=== PATIENT | male | born 1950 | race Caucasian/White ===

== ENCOUNTER 2024-11-20 19:42 | Inpatient (IN) | payer MEDICARE, OTHER ==
[~2024-11-20] VITALS: Ht 175.3 cm; Wt 90.4 kg
--- NOTE | 2024-11-20 20:03 | ED.PDOC ---
History of Present Illness HPI Comments 74-year-old male came to ER via EMS due to fall injury. Per EMS, patient picked up at home where he lives with his . Has been having recurrent falls recently and whenever he does, he cannot get up, not without help. Had another fall earlier, and as paramedics scoped the surroundings, noted that the house w as very unkempt and untidy, with feces all over the place. Fearing that the patient might not get the help he needs, they decided to bring patient to the ER. Patient currently complaining of generalized body pains. Patient lives alone with his elderly who is hard of hearing. The patient states he thinks he slid out of bed. Chief Complaint: Fall Injury Time Seen by MD: 20:01 Reviewed Notes: Weaving Machine Operator Notes Allergies: Coded Allergies: Aspirin (Verified Allergy, Unknown, 11/20/24) Information Source: Patient, Emergency Med Personnel Mode of Arrival: EMS Severity: Moderate Timing: Days Duration: Intermittent Review of Systems REVIEW OF SYSTEMS: No fever, no chills, or fatigue HEENT: No sore throat, no earache, no congestion, no neck pain. Cardiac: No chest pain. No palpitations. Lungs: No shortness of breath, no cough. GI: No nausea, no vomiting, no diarrhea, no constipation, no abdominal pain : No dysuria, frequency, or urgency. No hematuria. Musculoskeletal: (+) back pains, No joint pain , no joint swelling, no extremity edema. Skin: No rash, no itching. Neuro: No headache, no dizziness, no weakness Vital Signs Vital Signs Date Time Temp Pulse Resp B/P (MAP) Pulse Ox O2 Delivery O2 Flow Rate FiO2 11/20/24 21:44 60 11/20/24 19:58 98.9 22 152/75 (100) 88 Physical Exam General: Awake, alert and oriented. No acute distress. Appears unkempt. Skin: Skin in warm, dry and intact. Appropriate color for ethnicity. Nailbeds pink with no cyanosis. HEENT: The head is normocephalic and atraumatic. Conjunctivae are clear without exudates or hemorrhage. Sclera is non-icteric. EOM are intact. No signs of nystagmus. Eyelids are normal in appearance without swelling or lesions. Oral mucosa is pink and moist Neck: The neck is supple with normal range of motion. No JVD. Cardiac: Heart rate and rhythm are normal. No murmurs, gallops, or rubs are auscultated. Respiratory: No signs of respiratory distress. Lung sounds are clear in all lobes bilaterally without rales, ronchi, or wheezes. Abdominal: Abdomen is soft, non-tender without distention. Bowel sounds are present and normoactive in all four quadrants. Extremities: Bilateral feet with multiple abrasions. Upper and lower extremities are without deformity or tenderness to palpation. No pelvic tenderness to palpation. Neurological: The patient is awake, alert and oriented to person, place, and time with normal speech. Speech is clear. There is no facial asymmetry. Psychiatric: Appropriate mood and affect. Past Medical History PAST MEDICAL HISTORY: COPD, HTN Past Medical History (Other): Chronic back pain Surgical History: Denies all surgeries Family History Family History: Reviewed,noncontributory to illness Social History Smoker: Non-Smoker Alcohol: Denies ETOH Use Drugs: Denies Drug Use Lives In: Home Was a procedure done? Was a procedure done?: No Differential Dx Considerations may include: Anemia. Electrolyte imbalance. Dehydration. Failure to thrive. Fall injury. Arrhythmia, acute coronary syndrome, urinary tract infection, colitis X-Ray, Labs, Meds, VS Vital Signs Date Time Temp Pulse Resp B/P (MAP) Pulse Ox O2 Delivery O2 Flow Rate FiO2 11/20/24 21:44 60 11/20/24 19:58 98.9 64 22 152/75 (100) 88 Lab Test 11/20/24 21:51 11/20/24 20:15 Range/Units Creatine Kinase Pending Troponin I High Sensitivity Pending 146 *H </=54 ng/L B-Type Natriuretic Peptide Pending White Blood Count 8.3 4.4-10.8 10^3/uL Red Blood Count 4.81 4.5-5.90 10^6/uL Hemoglobin 14.8 13.5-17.5 g/dL Hematocrit 42.4 41.0-53.0 % Mean Corpuscular Volume 88.1 80.0-100.0 fL Mean Corpuscular Hemoglobin 30.7 28.0-32.0 pg Mean Corpuscular Hemoglobin Concent 34.8 32.0-36.0 g/dL Red Cell Distribution Width 14.6 H 11.8-14.3 % Platelet Count 107 L 140-450 10^3/uL Mean Platelet Volume 8.8 6.9-10.8 fL Neutrophils (%) (Auto) 87.7 H 37.0-80.0 % Lymphocytes (%) (Auto) 4.2 L 10.0-50.0 % Monocytes (%) (Auto) 7.9 0.0-12.0 % Eosinophils (%) (Auto) 0.0 0.0-7.0 % Basophils (%) (Auto) 0.2 0.0-2.0 % Neutrophils # (Auto) 7.3 1.6-8.6 10 ^3/uL Lymphocytes # (Auto) 0.3 L 0.4-5.4 10 ^3/uL Monocytes # (Auto) 0.7 0-1.3 10 ^3/uL Eosinophils # (Auto) 0 0-0.8 10 ^3/uL Basophils # (Auto) 0 0-0.2 10 ^3/uL Nucleated Red Blood Cells 0.0 % Sodium Level 139 136-145 mmol/L Potassium Level 2.9 L 3.5-5.1 mmol/L Chloride Level 103 98-107 mmol/L Carbon Dioxide Level 27 20-31 mmol/L Anion Gap 9 5-15 Blood Urea Nitrogen 14 9-23 mg/dL Creatinine 1.21 0.700-1.30 mg/dL Glomerular Filtration Rate Calc 63 >90 mL/min BUN/Creatinine Ratio 11.6 10.0-20.0 Serum Glucose 107 H 74-106 mg/dL Lactic Acid Level 1.7 0.4-2.0 mmol/L Calcium Level 9.2 8.7-10.4 mg/dL Magnesium Level 1.8 1.6-2.6 mg/dL Total Bilirubin 1.0 0.2-1.0 mg/dL Aspartate Amino Transferase (AST) 374 H 13-40 U/L Alanine Aminotransferase (ALT) 143 H 7-40 U/L Alkaline Phosphatase 56 46-116 U/L Total Protein 6.5 5.7-8.2 g/dL Albumin 4.1 3.2-4.8 g/dL Time of 1ST Reevaluation: 19:56 Reevaluation 1ST: Unchanged Patient Education/Counseling: Diagnosis, Treatment Family Education/Counseling: No Family Present Departure 1 Departure Time of Disposition: 21:33 Impression: Primary Impression: Unable to care for self Additional Impressions: Elevated troponin Hypokalemia Diarrhea Frequent falls Generalized weakness Fracture, thoracic vertebra, compression Qualified Codes: S22.080A - Wedge compression fracture of T11-T12 vertebra, initial encounter for closed fracture Hepatosplenomegaly Diverticulosis Colitis Emphysema of lung Aortic valve calcification Disposition: ADMITTED INPATIENT Condition: Poor Comments 74-year-old male who presents to the emergency department via EMS with frequent falls at home, found down the floor. Patient is unable to care for self at home, his elderly he is unable to care for him at home. Troponin to be elevated with no ST changes on the EKG. Patient is not complaining of chest pain. We will trend troponins and consult cardiology. No heparin at this time. Workup today also reveals that he has hypokalemia, a subacute/ already healing T11 compression fracture. Various other abnormalities identified on CT abdomen and pelvis. Patient admitted for further treatment, evaluation and monitoring. Extensive evaluation was performed in attempt to identify or rule out: (See differential diagnosis section) The following tests were ordered, and results were reviewed by me: (See diagnostic results section) The following test were independently interpreted by me: N/A I reviewed and agreed with the following test results read by other providers: N/A I reviewed the following notes from the pt's past medical encounters: N/A Additional information was gathered from interviewing the following independent historians: EMS personnel Discussion of management or test interpretation with external physician/other qualified health cattle care worker: N/A Addressed an acute or chronic illness that poses a threat to life or bodily function: Hypokalemia, elevated troponin level Decision regarding hospitalization or escalation of hospital level of care: Risk and benefits of admission for further treatment of patient's condition was considered. Due to patient's current clinical condition, high risk of decline and poor outcome if discharged and need for further inpatient management and monitoring, patient will be admitted to the hospital. Drug therapy requiring intensive monitoring for toxicity: IV potassium Parenteral controlled substances: N/A Decision regarding elective major surgery with identified patient or procedure risk factors: N/A Decision regarding emergency major surgery: N/A Decision not to resuscitate or to de-escalate care because of poor prognosis: N/A Diagnosis or treatment significantly limited by social determinants of health: Elderly patient with frequent falls, unable to care for self, lives at home with who is unable to care for patient Critical Care Note Critical Care Time?: No Stability Stability form required: No I personally scribed for BRANDYN ACOSTA MD ([email or web address]) on 11/20/24 at 20:03. Electronically submitted by Sorin Westbrook ([facility]). BRANDYN ACOSTA MD Nov 20, 2024 20:03
[2024-11-20 20:24] LABS: Basophils # (auto) 0 10 ^3/uL (0-0.2); Basophils % (auto) 0.2 % (0.0-2.0); Eosinophils # (auto) 0 10 ^3/uL (0-0.8); Hematocrit 42.4 % (41.0-53.0); Hemoglobin 14.8 g/dL (13.5-17.5); Lymphocytes # (auto) 0.3 10 ^3/uL (0.4-5.4); Lymphocytes % (auto) 4.2 % (10.0-50.0); Mean Corpuscular Hemoglobin 30.7 pg (28.0-32.0); Mean Corpuscular Hgb Conc. 34.8 g/dL (32.0-36.0); Mean Corpuscular Volume 88.1 fL (80.0-100.0); Monocytes # (auto) 0.7 10 ^3/uL (0-1.3); Monocytes % (auto) 7.9 % (0.0-12.0); Neutrophils # (auto) 7.3 10 ^3/uL (1.6-8.6); Neutrophils % (auto) 87.7 % (37.0-80.0); Platelet Count (auto) 107 10^3/uL (140-450); Red Blood Cells 4.81 10^6/uL (4.5-5.90); Red Cell Distribution Width 14.6 % (11.8-14.3); White Blood Cell 8.3 10^3/uL (4.4-10.8)
[2024-11-20 20:40] LABS: Albumin 4.1 g/dL (3.2-4.8); Alkaline Phosphatase 56 U/L (46-116); Anion Gap 9 (5-15); BUN/Creatinine Ratio 11.6 (10.0-20.0); Blood Urea Nitrogen 14 mg/dL (9-23); Calcium 9.2 mg/dL (8.7-10.4); Carbon Dioxide 27 mmol/L (20-31); Chloride 103 mmol/L (98-107); Magnesium 1.8 mg/dL (1.6-2.6); Sodium 139 mmol/L (136-145); Total Protein 6.5 g/dL (5.7-8.2)
[2024-11-20 20:41] LABS: Alanine Aminotransferase 143 U/L (7-40); Aspartate Aminotransferase 374 U/L (13-40); Glucose 107 mg/dL (74-106); Potassium 2.9 mmol/L (3.5-5.1)
--- NOTE | 2024-11-20 21:18 | DVH ---
EXAM: CT CERVICAL WITHOUT CONTRAST INDICATION: Fall, Generalized weakness, EXAM DATE: 11/20/2024 08:49 PM COMPARISON: None TECHNIQUE: Multiple axial CT images of the cervical spine were obtained using bone algorithm. Axial a nd coronal reformatting was done. Bone and soft tissue windows were reviewed. Radiation Dose Information: CT Dose: CTDI volume is 23.08 mGy. Dose-length product is 675.44 mGy*cm FINDINGS: The cervical alignment is intact. No acute cervical spine fracture is identified. The vertebral body heights are intact. No suspicious osseous lesions are identified. Motion artifact limits evaluation o f the mandible for fracture. Multilevel [id number] degenerative changes of the cervical spine. There is no prevertebral soft tissue swelling. The thyroid gland is unremarkable. The lung apices are clear. Mild mucoperiosteal thickening of the ethmoid air cells. IMPRESSION: No evidence of acute cervical spine fracture or traumatic malalignment. Motion artifact limits evaluation of the mandible for fractures. All CT scans at this medical facility are performed using dose modulation techniques as appropriate t o a performed exam including the following: Automated exposure control was utilized; adjustment of th e MA and/or KV according to patient size; and use of iterative reconstruction technique.
--- NOTE | 2024-11-20 21:18 | DVH ---
CT HEAD WITHOUT CONTRAST INDICATION: Fall, Generalized weakness, COMPARISON: None TECHNIQUE: CT of the head without intravenous contrast. RADIATION DOSE: CTDIvol: mGy, DLP: mGy*cm FINDINGS: There is no evidence of acute hemorrhage, acute infarct, extra-axial collection, mass effect, midlin e shift, herniation or hydrocephalus. Mild chronic white matter microvascular ischemic changes. Mild ventricular enlargement related to mild cerebral volume loss. Visualized paranasal sinuses and mastoi d air cells are clear. Soft tissues and osseous structures are unremarkable. IMPRESSION: No acute intracranial abnormality identified. Mild microvascular ischemic changes.
--- NOTE | 2024-11-20 21:43 | DVH ---
CLINICAL HISTORY: Fall, Generalized weakness, TECHNIQUE: CT of the chest, abdomen and pelvis was performed without IV contrast. This exam was perfo rmed according to our departmental dose optimization program. Up-to-date CT equipment and radiation d ose reduction techniques are utilized as appropriate. COMPARISON: None FINDINGS: CHEST FINDINGS: Lower Neck: Unremarkable Axilla, Mediastinum and Rochelle: No axillary or mediastinal lymphadenopathy. Limited evaluation of the rochelle in the absence of intravenous contrast Heart and Great Vessels: Normal-sized heart with trace pericardial fluid at least mild aortic valve a nd coronary artery calcifications greatest in the left anterior descending coronary artery there is m oderate calcified plaque in the normal caliber thoracic aorta. Central pulmonary arteries are normal caliber. Airway, Lungs and Pleura: Trachea and central airways are patent . Circumferential bronchial wall thi ckening . Mild emphysema. Linear bibasilar atelectasis or scarring. No consolidative pneumonia, pleu ral effusion, or pneumothorax. Chest Wall and Osseous Structures: Spinal stimulator leads terminate at the level of T6. There is a s ubacute appearing moderate greater than 50% height loss compression fracture of T11. Diffuse sclerosi s of the T11 vertebral body. mild multilevel thoracic spondylosis. Symmetric mild bilateral gynecomas tia. Abdomen and Pelvis Findings: Liver and Biliary system: Hepatomegaly measuring 19 cm craniocaudal. No definite hepatic lesion. The gallbladder is normal caliber. There is no biliary ductal dilatation Spleen: Mild splenomegaly. Adrenal Glands and Kidneys: Unremarkable. Pancreas and Retroperitoneum: Mild atrophy of the pancreas. There is no retroperitoneal lymphadenopat hy. Aorta and Major Vessels: Mild ectasia of the abdominal aorta. Moderate to marked calcified plaque in the aortoiliac vessels. Bowel, Mesentery and Peritoneal space: Normal caliber small and large bowel. Fluid containing small a nd large bowel loops. Mild distal colonic diverticulosis. Normal appendix. No free air or fluid wade ection. Pelvis: Mild prostatomegaly with nodular hypertrophy indenting into the bladder base. No pelvic lymph adenopathy. Urinary bladder is mildly distended. Abdominal wall and Osseous Structures: Small fat containing bilateral inguinal hernias. Small bilater al hydroceles. Posterior spinal fixation hardware with bilateral rods and transpedicular screws at L4 -S1. Multilevel lumbar spondylosis. There is a battery pack in the left flank with stimulator leads e ntering the spinal canal at the level of T12-L1. Multilevel lumbar spondylosis. There is bony deminer alization. Prior L5 laminectomy. No acute fracture. IMPRESSION: 1. Moderate greater than 50% height loss compression fracture of T11 with diffuse sclerosis of the ve rtebral body likely healing/subacute. 2. No noncontrast evidence of acute visceral injury or acute fracture. 3. Mild hepatosplenomegaly 4. Fluid containing small and large bowel loops which may be physiologic or related to enterocolitis 5. Mild emphysema. 6. At least mild coronary artery and aortic valve calcifications, greatest in the left anterior desce nding coronary artery. 7. Mild distal colonic diverticulosis 8. Mild prostatomegaly with nodular hypertrophy indenting into the bladder base.
[2024-11-21 02:00] VITALS: PULSE 55; RESP 15; O2SAT 94
[2024-11-21] MEDS: SODIUM CHLORIDE 0.9% 1,000 ML IV ONE (02:24)
[2024-11-21] MEDS: POTASSIUM CHL 20MEQ/100ML 100 ML IV ONE (02:37)
[2024-11-21 03:06] LABS: Urine Bacteria None Seen /hpf (None Seen)
[2024-11-21 03:23] LABS: Urine Blood 3+ /uL (Negative); Urine Clarity Clear (Clear); Urine Color Yellow (Yellow); Urine Hyaline Cast FEW /lpf (0 - 2); Urine Mucus FEW (None Seen); Urine Protein, UAD 1+ (Negative); Urine Specific Gravity 1.025 (1.001-1.035); Urine Squamous Epithelial Cell FEW /hpf (<5); Urine Urobilinogen Normal (Negative); Urine WBC 2 /HPF (0-3)
[2024-11-21] MEDS ORDERED: ACETAMINOPHEN 325 MG TAB PO PRN (04:00)
[2024-11-21] MEDS ORDERED: MORPHINE SULFATE INJ 2 MG/ml SYRG IV PRN (04:00)
[2024-11-21] MEDS ORDERED: ONDANSETRON HCL 4 MG/2 ML VIAL IV PRN (04:00)
[2024-11-21] MEDS ORDERED: NITROGLYCERIN 0.4 MG SL TAB SL PRN (04:00)
[2024-11-21] MEDS ORDERED: DOCUSATE SOD 100 MG CAP PO PRN (04:00)
--- NOTE | 2024-11-21 04:00 | ECG ---
[facility] Test Date: 2024-11-20 Test Time: 21:44:20 Pat Name: MARY SALES Department: ER Room: [address] [place] [address] Gender: M Cab Driver: CAMRON : 1950 Requested By: BRANDYN ACOSTA Order Number: [id number] Reading MD: Efren Tse Measurements Intervals Blanding Rate: 60 P: 46 NV: 158 QRS: 56 QRSD: 118 T: 62 QT: 451 QTc: 451 Interpretive Statements Sinus rhythm Nonspecific intraventricular conduction delay Artifact in lead(s) I,II,aVR,V1 Electronically Signed On 11-21-2024 19:55:23 PST by Efren Tse Please click the below link to view image of tracing.
--- NOTE | 2024-11-21 04:02 | DVHHP2 ---
History of Present Illness Reason for Visit: Generalized weakness History of Present Illness The patient is a 74-year-old male with past medical history of COPD, hypertension, and chronic back pain who presented to [facility] ED for evaluation of fall with injury. Patient lives at home with , had frequent fall at home with another fall earlier today with sustained injury. As reported, patient was noted to be unkempt, with Filthy surrounding, feces all over the place, unable to care for self. Patient was seen and evaluated in the ED, laboratory data shows WBC 8.3, platelets 107, sodium 139, potassium 2.9, BUN 14, creatinine 1.21, GFR 63, glucose 107, troponin 146, AST 374, ALT 143, BNP 71.35, CK 8993, blood pressure 152/75, heart rate 60, temperature 98.9 F, O2 saturation 92% on oxygen. CT of the chest/abdomen/pelvis revealing moderate greater than 50% height loss compression fracture of T11 with diffuse sclerosis of the vertebral body likely healing/subacute, mild hepatomegaly, enterocolitis, mild emphysema. Please see medication orders section in the computer. On my assessment, patient remains weak, no headache, no dizziness, no diaphoresis, currently on oxygen, no diarrhea, no nausea, no vomiting, no fever, no chills. Patient was admitted for further evaluation and medical management. Past Medical History COPD, HTN, Chronic back pain Past Surgical History Denies all surgeries Family History Reviewed, noncontributory to the management of this case. Past Social History The patient lives at home, denies smoking, alcohol or illicit drugs abuse. Review of Systems Constitutional: Yes: Weakness; No: Fever, Chills, Sweats, Malaise, Other Eyes: No: Pain, Vision change, Conjunctivae inflammation, Eyelid inflammation, Other, Redness ENT: No: Ear pain, Ear discharge, Nose pain, Nose discharge, Nose congestion, Mouth pain, Mouth swelling, Throat pain, Throat swelling, Other Respiratory: No: Cough, Dry, Shortness of breath, SOB with excertion, Wheezing, Hemoptysis, Pleuritic Pain, Sputum, Wheezing, Other Cardiovascular: No: Chest Pain, Palpitations, Orthopnea, Paroxysmal Noc. Dyspnea, Edema, Lt Headedness, Other Gastrointestinal: No: Nausea, Vomiting, Abdominal Pain, Diarrhea, Constipation, Melena, Hematochezia, Other Genitourinary: No Dysuria, No Frequency, No Incontinence, No Hematuria, No Retention, No Other Musculoskeletal: back pain; No: other, neck pain, shoulder pain, arm pain, hand pain, leg pain, foot pain Skin: No: Rash, Lesions, Jaundice, Bruising, Other Neurological: No: Weakness, Numbness, Incoordination, Change in speech, Confusion, Seizures, Other Allergies: Coded Allergies: Aspirin (Verified Allergy, Unknown, 11/20/24) Exam Vital Signs Vital Signs Date Time Temp Pulse Resp B/P (MAP) Pulse Ox O2 Delivery O2 Flow Rate FiO2 11/21/24 03:53 50 16 152/61 (91) 95 11/21/24 02:00 98.9 98.9 11/21/24 02:00 Nasal Cannula* 3 32 General Appearance: Alert, Oriented X3, Cooperative, No acute distress HEENT: Atraumatic, PERRLA, EOMI, Mucous membr. moist/pink Respiratory: Clear to auscultation, Normal air movement Cardiovascular: Regular rate, Normal S1, Normal S2, No murmurs Abdominal: Normal bowel sounds, Soft, No tenderness, No hepatospenomegaly, No masses Extremities: No clubbing, No cyanosis, No edema, Normal pulses, No tenderness/swelling Skin: No rashes, No breakdown, No significant lesion Neuro: Normal speech, Normal tone, Sensation intact, Cranial nerves 3-12 NL, Reflexes 2+, Other (Generalized weakness) Psych/Mental Status: Mental status NL, Mood NL Labs/Xrays Labs Test 11/21/24 03:00 11/20/24 23:18 11/20/24 21:51 11/20/24 20:15 Range/Units Urine Color Yellow Yellow Urine Clarity Clear Clear Urine pH 6.0 5.0-9.0 Urine Specific [place] 1.025 1.001-1.035 Urine Protein 1+ H Negative Urine Ketones Trace Negative Urine Blood 3+ H Negative /uL Urine Nitrite Negative Negative Urine Bilirubin Negative Negative Urine Urobilinogen Normal Negative mg/dL Urine Leukocyte Esterase Negative Negative /uL Urine RBC 1 0 - 3 /hpf Urine Microscopic WBC 2 0-3 /HPF Urine Squamous Epithelial Cells Few <5 /hpf Urine Bacteria None seen None Seen /hpf Urine Hyaline Casts Few 0 - 2 /lpf Urine Mucus Few None Seen Urine Glucose Normal Normal mg/dL Troponin I High Sensitivity 147 *H </=54 ng/L Creatine Kinase 8993 H 46-171 U/L B-Type Natriuretic Peptide 71.35 0-100 pg/mL White Blood Count 8.3 4.4-10.8 10^3/uL Red Blood Count 4.81 4.5-5.90 10^6/uL Hemoglobin 14.8 13.5-17.5 g/dL Hematocrit 42.4 41.0-53.0 % Mean Corpuscular Volume 88.1 80.0-100.0 fL Mean Corpuscular Hemoglobin 30.7 28.0-32.0 pg Mean Corpuscular Hemoglobin Concent 34.8 32.0-36.0 g/dL Red Cell Distribution Width 14.6 H 11.8-14.3 % Platelet Count 107 L 140-450 10^3/uL Mean Platelet Volume 8.8 6.9-10.8 fL Neutrophils (%) (Auto) 87.7 H 37.0-80.0 % Lymphocytes (%) (Auto) 4.2 L 10.0-50.0 % Monocytes (%) (Auto) 7.9 0.0-12.0 % Eosinophils (%) (Auto) 0.0 0.0-7.0 % Basophils (%) (Auto) 0.2 0.0-2.0 % Neutrophils # (Auto) 7.3 1.6-8.6 10 ^3/uL Lymphocytes # (Auto) 0.3 L 0.4-5.4 10 ^3/uL Monocytes # (Auto) 0.7 0-1.3 10 ^3/uL Eosinophils # (Auto) 0 0-0.8 10 ^3/uL Basophils # (Auto) 0 0-0.2 10 ^3/uL Nucleated Red Blood Cells 0.0 % Sodium Level 139 136-145 mmol/L Potassium Level 2.9 L 3.5-5.1 mmol/L Chloride Level 103 98-107 mmol/L Carbon Dioxide Level 27 20-31 mmol/L Anion Gap 9 5-15 Blood Urea Nitrogen 14 9-23 mg/dL Creatinine 1.21 0.700-1.30 mg/dL Glomerular Filtration Rate Calc 63 >90 mL/min BUN/Creatinine Ratio 11.6 10.0-20.0 Serum Glucose 107 H 74-106 mg/dL Lactic Acid Level 1.7 0.4-2.0 mmol/L Calcium Level 9.2 8.7-10.4 mg/dL Magnesium Level 1.8 1.6-2.6 mg/dL Total Bilirubin 1.0 0.2-1.0 mg/dL Aspartate Amino Transferase (AST) 374 H 13-40 U/L Alanine Aminotransferase (ALT) 143 H 7-40 U/L Alkaline Phosphatase 56 46-116 U/L Total Protein 6.5 5.7-8.2 g/dL Albumin 4.1 3.2-4.8 g/dL PATIENT: MARY SALES ACCT: [id number] UNIT: [id number] : 1950 LOC: ER ROOM / BED: / AGE / SEX: 74 / M ADM STATUS: REG ER SERVICE 53 ORDERING PHYSICIAN: BRANDYN ACOSTA MD PROCEDURE(s): CTCAP - CHST AB PEL WO CON-NO IV/ORAL REASON: Fall, Generalized weakness, ORDER NUMBER(s): [id number], ACCESSION NUMBER(s): [id number] CLINICAL HISTORY: Fall, Generalized weakness, TECHNIQUE: CT of the chest, abdomen and pelvis was performed without IV contrast . This exam was performed according to our departmental dose optimization program. Up-to-date CT equipment and radiation dose reduction techniques are utilized as appropriate. COMPARISON: None FINDINGS: CHEST FINDINGS: Lower Neck: Unremarkable Axilla, Mediastinum and Rochelle: No axillary or mediastinal lymphadenopathy. Limited evaluation of the rochelle in the absence of intravenous contrast Heart and Great Vessels: Normal-sized heart with trace pericardial fluid at least mild aortic valve and coronary artery calcifications greatest in the left anterior descending coronary artery there is moderate calcified plaque in the normal caliber thoracic aorta. Central pulmonary arteries are normal caliber. Airway, Lungs and Pleura: Trachea and central airways are patent . Circumferential bronchial wall thickening. Mild emphysema. Linear bibasilar atelectasis or scarring. No consolidative pneumonia, pleural effusion, or pneumothorax. Chest Wall and Osseous Structures: Spinal stimulator leads terminate at the level of T6. There is a subacute appearing moderate greater than 50% height loss compression fracture of T11. Diffuse sclerosis of the T11 vertebral body. mild multilevel thoracic spondylosis. Symmetric mild bilateral gynecomastia. Abdomen and Pelvis Findings: Liver and Biliary system: Hepatomegaly measuring 19 cm craniocaudal. No definite hepatic lesion. The gallbladder is normal caliber. There is no biliary ductal dilatation Spleen: Mild splenomegaly. Adrenal Glands and Kidneys: Unremarkable. Pancreas and Retroperitoneum: Mild atrophy of the pancreas. There is no retroperitoneal lymphadenopathy. Aorta and Major Vessels: Mild ectasia of the abdominal aorta. Moderate to marked calcified plaque in the aortoiliac vessels. Bowel, Mesentery and Peritoneal space: Normal caliber small and large bowel. Fluid containing small and large bowel loops. Mild distal colonic diverticulosis. Normal appendix. No free air or fluid collection. Pelvis: Mild prostatomegaly with nodular hypertrophy indenting into the bladder base. No pelvic lymphadenopathy. Urinary bladder is mildly distended. Abdominal wall and Osseous Structures: Small fat containing bilateral inguinal hernias. Small bilateral hydroceles. Posterior spinal fixation hardware with bilateral rods and transpedicular screws at L4-S1. Multilevel lumbar spondylosis. There is a battery pack in the left flank with stimulator leads entering the spinal canal at the level of T12-L1. Multilevel lumbar spondylosis. There is bony demineralization. Prior L5 laminectomy. No acute fracture. IMPRESSION: 1. Moderate greater than 50% height loss compression fracture of T11 with diffuse sclerosis of the vertebral body likely healing/subacute. 2. No noncontrast evidence of acute visceral injury or acute fracture. 3. Mild hepatosplenomegaly 4. Fluid containing small and large bowel loops which may be physiologic or related to enterocolitis 5. Mild emphysema. 6. At least mild coronary artery and aortic valve calcifications, greatest in the left anterior descending coronary artery. 7. Mild distal colonic diverticulosis 8. Mild prostatomegaly with nodular hypertrophy indenting into the bladder base. ORDERING PHYSICIAN: BRANDYN ACOSTA MD PROCEDURE(s): CS2 - CERVICAL WITHOUT CONTRAST REASON: Fall, Generalized weakness, ORDER NUMBER(s): [id number], ACCESSION NUMBER(s): [id number] EXAM: CT CERVICAL WITHOUT CONTRAST INDICATION: Fall, Generalized weakness, EXAM DATE: 11/20/2024 08:49 PM COMPARISON: None TECHNIQUE: Multiple axial CT images of the cervical spine were obtained using bone algorithm. Axial and coronal reformatting was done. Bone and soft tissue windows were reviewed. Radiation Dose Information: CT Dose: CTDI volume is 23.08 mGy. Dose-length product is 675.44 mGy*cm FINDINGS: The cervical alignment is intact. No acute cervical spine fracture is identified. The vertebral body heights are intact. No suspicious osseous lesions are identified. Motion artifact limits evaluation of the mandible for fracture. Multilevel [id number] degenerative changes of the cervical spine. There is no prevertebral soft tissue swelling. The thyroid gland is unremarkable. The lung apices are clear. Mild mucoperiosteal thickening of the ethmoid air cells. IMPRESSION: No evidence of acute cervical spine fracture or traumatic malalignment. Motion artifact limits evaluation of the mandible for fractures. ORDERING PHYSICIAN: BRANDYN ACOSTA MD PROCEDURE(s): HWOCT - HEAD WITHOUT CONTRAST REASON: Fall, Generalized weakness, ORDER NUMBER(s): [id number], ACCESSION NUMBER(s): [id number] CT HEAD WITHOUT CONTRAST INDICATION: Fall, Generalized weakness, COMPARISON: None TECHNIQUE: CT of the head without intravenous contrast. RADIATION DOSE: CTDIvol: mGy, DLP: mGy*cm FINDINGS: There is no evidence of acute hemorrhage, acute infarct, extra-axial collection, mass effect, midline shift, herniation or hydrocephalus. Mild chronic white matter microvascular ischemic changes. Mild ventricular enlargem ent related to mild cerebral volume loss. Visualized paranasal sinuses and mastoid air cells are clear. Soft tissues and osseous structures are unremarkable. IMPRESSION: No acute intracranial abnormality identified. Mild microvascular ischemic changes. Assessment/Plan Assessment/Plan Generalized weakness Unable to care for self Elevated troponin Hypokalemia Frequent falls Fracture, thoracic vertebra, compression Wedge compression fracture of T11-T12 vertebra, initial encounter for closed fracture Hepatosplenomegaly Rhabdomyolysis Emphysema of lung Aortic valve calcification Plan 1. Admit to telemetry unit 2. Breathing treatment 3. Pain control management 4. Management of fluids and electrolytes 5. Consultation for orthopedic/neurology 6. Diagnostic tests chest/abdomen/pelvis CT 7. DVT prophylaxis-on aspirin 8. Repeat labs CBC, CMP in a.m. 9. Continue with current medical management 10. Treatment plan discussed with patient and RN. Patient verbalized understanding. Plan discussed with: Patient, Other (RN) My Orders Orders - MILAD ESCOTO DNP Procedure Category Date Status Time Complete Blood Count LAB 11/21/24 Verified 04:00 Comprehensive LAB 11/21/24 Verified Metabolic Panel 04:00 Hydralazine Injection PHA 11/21/24 Verified (Apresoline Inject 04:00 Amlodipine Tablet PHA 11/21/24 Verified (Norvasc Tablet) 10:00 Aspirin Tablet PHA 11/21/24 Verified 10:00 Aspirin Tablet [facility] 11/21/24 Verified 10:00 Admit ADMIT 11/21/24 Verified 03:56 Allergies [facility] 11/21/24 Verified 03:56 Code Status CODE 11/21/24 Verified 03:56 0.9% Ns 1000 Ml PHA 11/21/24 Verified 04:00 Oxygen Per Hour RT 11/21/24 Verified 03:56 Hydrocodone-Acet PHA 11/21/24 Verified 5/325mg Tab ([place] 04:00 Ondansetron Hcl PHA 11/21/24 Verified (Zofran) 04:00 Docusate Sodium [facility] 11/21/24 Verified Capsule (Colace 04:00 Fall Risk Precautions [facility] 11/21/[address] 03:56 Complete Blood Count LAB 11/22/24 Verified 04:00 Comprehensive LAB 11/22/24 Verified Metabolic Panel 04:00 Cardiac DIET 11/21/24 Verified Diet-2gna,Lofat,Lochol Breakfast Condition: Serious [facility] 11/21/24 Verified 03:56 Acetaminophen Tablet [facility] 11/21/24 Verified (Tylenol Tablet) 04:00 Sequential [facility] 11/21/24 Verified Compression Device Nitroglycerin [facility] 11/21/24 Verified Sublingual (Ntrostat 04:00 Morphine Sulfate [facility] 11/21/24 Verified Injection 04:00 Notify Of Changes [facility] 11/21/24 Verified From Base 03:56 Refrigeration Engine Operator For [facility] 11/21/24 Verified 24 Hours 03:56 Emergency Dysrhythmia [facility] 11/21/24 Verified Protocol 03:56 Rhythm Strips Once [facility] 11/21/24 Verified Every Shift 03:56 Oxygen By Nasal RT 11/21/24 Verified Cannula 03:56 Problem List: (1) Generalized weakness (2) Elevated troponin (3) Unable to care for self (4) Hypokalemia (5) Hepatosplenomegaly (6) Fracture, thoracic vertebra, compression (7) Emphysema of lung (8) Aortic valve calcification (9) Rhabdomyolysis (10) Frequent falls (11) Wedge compression fracture of T11-T12 vertebra, initial encounter for closed fracture Date of Service: Nov 21, 2024 Billing Provider: OKPAN,MILAD O DNP Common Visit Codes: [id number] INP/OBS CARE (HIGH) MILAD ESCOTO DNP Nov 21, 2024 04:02
[2024-11-21 04:20] VITALS: PULSE 50; RESP 16; O2SAT 95
[2024-11-21] MEDS: SODIUM CHLORIDE 0.9% 1,000 ML IV SCH (04:54)
[2024-11-21 07:23] LABS: Basophils # (auto) 0 10 ^3/uL (0-0.2); Basophils % (auto) 0.2 % (0.0-2.0); Eosinophils # (auto) 0 10 ^3/uL (0-0.8); Hematocrit 38.1 % (41.0-53.0); Hemoglobin 13.4 g/dL (13.5-17.5); Lymphocytes % (auto) 15.7 % (10.0-50.0); Mean Corpuscular Hemoglobin 30.9 pg (28.0-32.0); Mean Corpuscular Hgb Conc. 35.2 g/dL (32.0-36.0); Mean Corpuscular Volume 87.8 fL (80.0-100.0); Monocytes # (auto) 0.6 10 ^3/uL (0-1.3); Monocytes % (auto) 10.1 % (0.0-12.0); Neutrophils # (auto) 4.7 10 ^3/uL (1.6-8.6); Platelet Count (auto) 106 10^3/uL (140-450); Red Blood Cells 4.34 10^6/uL (4.5-5.90); Red Cell Distribution Width 14.3 % (11.8-14.3); White Blood Cell 6.3 10^3/uL (4.4-10.8)
[2024-11-21 07:40] LABS: Albumin 3.8 g/dL (3.2-4.8); Alkaline Phosphatase 50 U/L (46-116); Anion Gap 8 (5-15); BUN/Creatinine Ratio 14.9 (10.0-20.0); Bilirubin, Total 0.8 mg/dL (0.2-1.0); Blood Urea Nitrogen 14 mg/dL (9-23); Calcium 8.8 mg/dL (8.7-10.4); Carbon Dioxide 27 mmol/L (20-31); Chloride 106 mmol/L (98-107); Glucose 89 mg/dL (74-106); Sodium 141 mmol/L (136-145)
[2024-11-21 07:43] LABS: Alanine Aminotransferase 158 U/L (7-40); Aspartate Aminotransferase 415 U/L (13-40); Potassium 2.8 mmol/L (3.5-5.1)
[2024-11-21 08:00] VITALS: PULSE 52; RESP 16; O2SAT 92
[2024-11-21] MEDS ORDERED: ASPirin 81 mg TAB PO SCH (10:00)
[2024-11-21] MEDS: ASPirin 81 mg TAB PO SCH (10:20)
[2024-11-21] MEDS: amLODIPine BESYLATE 5 MG TAB PO SCH (10:21)
--- NOTE | 2024-11-21 13:52 | DVHPN2 ---
Reviewed: Care Plan, H&P, Labs, Medications, Previous Orders, Radiology Changes from previous H/P or p: No Changes Eyes: No Pain, No Vision change, No Conjunctivae inflammation, No Eyelid inflammation, No Other, No Redness ENT: No Ear pain, No Ear discharge, No Nose pain, No Nose discharge, No Nose congestion, No Mouth pain, No Mouth swelling, No Throat pain, No Throat swelling, No Other Cardiovascular: No Chest Pain, No Palpitations, No Orthopnea, No Paroxysmal Noc. Dyspnea, No Edema, No Lt Headedness, No Other Respiratory: No Cough, No Dry, No Shortness of breath, No SOB with excertion, No Wheezing, No Hemoptysis, No Pleuritic Pain, No Sputum, No Other Gastrointestinal: No Nausea, No Vomiting, No Abdominal Pain, No Diarrhea, No Constipation, No Melena, No Hematochezia, No Other Genitourinary: No Dysuria, No Frequency, No Incontinence, No Hematuria, No Retention, No Other Musculoskeletal: No other, No neck pain, No shoulder pain, No arm pain; back pain; No hand pain, No leg pain, No foot pain Skin: No Rash, No Lesions, No Jaundice, No Bruising, No Other Objective Vitals Vital Signs Date Time Temp Pulse Resp B/P (MAP) Pulse Ox O2 Delivery O2 Flow Rate FiO2 11/21/24 12:00 54 17 119/59 (79) 92 11/21/24 08:00 98.6 98.6 11/21/24 08:00 Nasal Cannula* 4 36 Intake/Output Intake and Output 11/21/24 07:00 Intake Total 340 ml Balance 340 ml Intake IV Total 340 ml Medications Current Medications Medications Dose Ordered Sig/Howard Route Start Time Stop Time Status Last Admin Dose Admin Hydralazine HCl 10 mg Q6HP PRN IV 11/21/24 04:00 Amlodipine Besylate 5 mg DAILY PO 11/21/24 10:00 11/21/24 10:21 5 MG Aspirin 81 mg DAILY PO 11/21/24 10:00 11/21/24 10:20 81 MG Sodium Chloride 1,000 ml @ 120 mls/hr Q8H20M IV 11/21/24 04:00 11/21/24 12:20 120 MLS/HR Acetaminophen/ Hydrocodone Bitart 1 tab Q4HP PRN PO 11/21/24 04:00 Ondansetron HCl 4 mg Q4HP PRN IV 11/21/24 04:00 Docusate Sodium 100 mg BIDPRN PRN PO 11/21/24 04:00 Acetaminophen 650 mg Q6HP PRN PO 11/21/24 04:00 Nitroglycerin 0.4 mg Q5MINP PRN SL 11/21/24 04:00 Morphine Sulfate 2 mg Q30M PRN IV 11/21/24 04:00 Potassium Bicarbonate 50 meq DAILY PO 11/22/24 10:00 UNV Laboratory Results Laboratory Tests 11/21/24 06:54 Chemistry Test 11/20/24 20:15 11/21/24 06:54 Albumin 4.1 g/dL (3.2-4.8) 3.8 g/dL (3.2-4.8) Calcium Level 9.2 mg/dL (8.7-10.4) 8.8 mg/dL (8.7-10.4) Magnesium Level 1.8 mg/dL (1.6-2.6) Total Protein 6.5 g/dL (5.7-8.2) 6.0 g/dL (5.7-8.2) Cardiac Markers Test 11/20/24 21:51 B-Type Natriuretic Peptide 71.35 pg/mL (0-100) LFT Test 11/20/24 20:15 11/21/24 06:54 Alanine Aminotransferase (ALT) 143 U/L (7-40) H 158 U/L (7-40) H Alkaline Phosphatase 56 U/L (46-116) 50 U/L (46-116) Aspartate Amino Transferase (AST) 374 U/L (13-40) H 415 U/L (13-40) H Total Bilirubin 1.0 mg/dL (0.2-1.0) 0.8 mg/dL (0.2-1.0) Urinalysis Test 11/21/24 03:00 Urine Color Yellow (Yellow) Urine Clarity Clear (Clear) Urine pH 6.0 (5.0-9.0) Urine Specific [place] 1.025 (1.001-1.035) Urine Protein 1+ (Negative) H Urine Ketones Trace (Negative) Urine Blood 3+ /uL (Negative) H Urine Nitrite Negative (Negative) Urine Bilirubin Negative (Negative) Urine Urobilinogen Normal mg/dL (Negative) Urine Leukocyte Esterase Negative /uL (Negative) Urine RBC 1 /hpf (0 - 3) Urine Microscopic WBC 2 /HPF (0-3) Urine Squamous Epithelial Cells Few /hpf (<5) Urine Bacteria None seen /hpf (None Seen) Urine Hyaline Casts Few /lpf (0 - 2) Urine Mucus Few (None Seen) Urine Glucose Normal mg/dL (Normal) Labs and/or images reviewed: Labs reviewed by me, Image(s) reviewed by me Assessment/Plan Assessment/Plan Acute generalized weakness Recurrent falls T11 fracture with 50 percent height loss: Orthopedic consult Acute hypokalemia potassium 2.9: Replace potassium Elevated troponin 146: Consult by Dr. Bar BPH Acute on chronic COPD exacerbation Hypertension Chronic back pain CT head negative C-spine CT negative Elevated liver function tests: Consult for GI Dr. Sherie Strong Condition guarded Time spent 65 minutes Advanced care planning time 20 minutes Patient is full code Plan discussed with: Patient My Orders Orders - ANTHONY FLORES MD Procedure Category Date Status Time Potassium Effervesent PHA 11/21/24 Logged Tab (Klor-Con/Ef) 14:00 Potassium Effervesent PHA 11/22/24 Logged Tab (Klor-Con/Ef) 10:00 Date of Service: Nov 21, 2024 Billing Provider: ANTHONY FLORES MD Common Visit Codes: [id number] CARE 30-74 MIN ANTHONY FLORES MD Nov 21, 2024 13:52
[2024-11-21] MEDS: POTASSIUM EFFERVESENT TAB 25 MEQ PO ONE (14:00)
--- NOTE | 2024-11-21 15:16 | DVHINCON2 ---
Date Seen: Nov 21, 2024 Referring Physician Neftaly Reason for Consultation Positive troponins History of Present Illness 74-year-old male with PMH for COPD, HTN, chronic back pain presents to the hospital after multiple falls at home. The patient fell was unable to get up and therefore EMS was called. Apparently patient has been feeling generalized weakness and shortness of breath having increased congestion productive cough. Patient denies any lightheadedness, syncope. Upon evaluation in the ER patient noted to have mildly elevated troponins trending 146, 152, 147. Endorses chest pain, pressure in nature, intermittent, worsens with deep inhalation and reproducible with cough. CT head negative for acute pathology, noted microvascular ischemic changes. CK 8993. K 2.8. Mildly Elevated AST and ALT. EKG reviewed and shows sinus rhythm at 60 beats per minute, no acute ST abnormalities noted Past Medical History HTN COPD Past Surgical History Denies previous cardiac surgeries Family History Denies pertinent family cardiac history Social History Denies current alcohol, tobacco, or illicit drug use Allergies: Coded Allergies: Aspirin (Verified Allergy, Severe, HIVES, 11/21/24) Caffeine (Verified Allergy, Severe, HIVES, 11/21/24) Current Medications Current Medications Medications (Trade) Dose Ordered Sig/Howard Route PRN Reason Start Time Stop Time Status Last Admin Hydralazine HCl (Apresoline Injection) 10 mg Q6HP PRN IV SBP>150 11/21/24 04:00 Amlodipine Besylate (Norvasc Tablet) 5 mg DAILY PO 11/21/24 10:00 11/21/24 10:21 Aspirin 162 mg DAILY PO 11/21/24 10:00 11/21/24 09:57 DC Aspirin 81 mg DAILY PO 11/21/24 10:00 11/21/24 10:20 Sodium Chloride 1,000 ml @ 120 mls/hr Q8H20M IV 11/21/24 04:00 11/21/24 12:20 Acetaminophen/ Hydrocodone Bitart ([place] 5/325MG Tab) 1 tab Q4HP PRN PO MODERATE PAIN (4-6 PAIN SCALE) 11/21/24 04:00 Ondansetron HCl (Zofran) 4 mg Q4HP PRN IV NAUSEA / VOMITING 11/21/24 04:00 Docusate Sodium (Colace Capsule) 100 mg BIDPRN PRN PO FOR CONSTIPATION 11/21/24 04:00 Acetaminophen (Tylenol Tablet) 650 mg Q6HP PRN PO PAIN SCALE 1-3 OR TEMP>100.4 11/21/24 04:00 Nitroglycerin (Ntrostat Sublingual) 0.4 mg Q5MINP PRN SL FOR CHEST PAIN 11/21/24 04:00 Morphine Sulfate 2 mg Q30M PRN IV FOR CHEST PAIN 11/21/24 04:00 Potassium Bicarbonate (Klor-Con/Ef) 50 meq DAILY PO 11/22/24 10:00 Review of Systems Constitutional: No: Fever, Chills, Sweats, , Other positive: Weakness, Malaise Eyes: No: Pain, Vision change, Conjunctivae inflammation, Eyelid inflammation, Other, Redness ENT: No: Ear pain, Ear discharge, Nose pain, Nose discharge, Nose congestion, Mouth pain, Mouth swelling, Throat pain, Throat swelling, Other Respiratory: No: , Dry, , Wheezing, Hemoptysis, Pleuritic Pain, Sputum, Wheezing, Other positive: Cough, Shortness of breath, SOB with exertion Cardiovascular: ; No: Palpitations, Orthopnea, Paroxysmal Noc. Dyspnea, Edema, Lt Headedness, Other positive: Chest Pain Gastrointestinal: No: Nausea, Vomiting, Abdominal Pain, Diarrhea, Constipation, Melena, Hematochezia, Other Genitourinary: No Dysuria, No Frequency, No Incontinence, No Hematuria, No Retention, No Other Musculoskeletal: neck pain; No: other, shoulder pain, arm pain, back pain, hand pain, leg pain, foot pain Skin: No: Rash, Lesions, Jaundice, Bruising, Other Neurological: Other (Dizziness, headache.); No: Weakness, Numbness, Incoordination, Change in speech, Confusion, Seizures Vital Signs Vital Signs Date Time Temp Pulse Resp B/P (MAP) Pulse Ox O2 Delivery O2 Flow Rate FiO2 11/21/24 12:00 54 17 119/59 (79) 92 11/21/24 08:00 98.6 98.6 11/21/24 08:00 Nasal Cannula* 4 36 Physical Exam General appearance: Ill-appearing, in mild acute distress. HEENT: Exam shows: Normocephalic, atraumatic, PERRLA, EOMI Neck: Supple, no bruits Chest: Equal chest excursion bilaterally. Breath sounds coarse rhonchi. Heart: Rhythm: Regular rate; no murmur or gallop Abdomen: Exam shows: Soft, nontender, nondistended Musculoskeletal: No clubbing, no cyanosis, no lower extremity edema Dermatology: Skin warm, moist. Neurological: Exam shows: Alert and oriented x3-4, normal speech Available prior records, labs, EKG, rhythm strips reviewed and interpreted Labs/Diagnostic Data Labs Test 11/21/24 06:54 11/21/24 03:00 11/20/24 23:18 11/20/24 21:51 Range/Units White Blood Count 6.3 4.4-10.8 10^3/uL Red Blood Count 4.34 L 4.5-5.90 10^6/uL Hemoglobin 13.4 L 13.5-17.5 g/dL Hematocrit 38.1 #L 41.0-53.0 % Mean Corpuscular Volume 87.8 80.0-100.0 fL Mean Corpuscular Hemoglobin 30.9 28.0-32.0 pg Mean Corpuscular Hemoglobin Concent 35.2 32.0-36.0 g/dL Red Cell Distribution Width 14.3 11.8-14.3 % Platelet Count 106 L 140-450 10^3/uL Mean Platelet Volume 9.1 6.9-10.8 fL Neutrophils (%) (Auto) 74.0 37.0-80.0 % Lymphocytes (%) (Auto) 15.7 10.0-50.0 % Monocytes (%) (Auto) 10.1 0.0-12.0 % Eosinophils (%) (Auto) 0.0 0.0-7.0 % Basophils (%) (Auto) 0.2 0.0-2.0 % Neutrophils # (Auto) 4.7 1.6-8.6 10 ^3/uL Lymphocytes # (Auto) 1.0 0.4-5.4 10 ^3/uL Monocytes # (Auto) 0.6 0-1.3 10 ^3/uL Eosinophils # (Auto) 0 0-0.8 10 ^3/uL Basophils # (Auto) 0 0-0.2 10 ^3/uL Nucleated Red Blood Cells 0.0 % Sodium Level 141 136-145 mmol/L Potassium Level 2.8 L 3.5-5.1 mmol/L Chloride Level 106 98-107 mmol/L Carbon Dioxide Level 27 20-31 mmol/L Anion Gap 8 5-15 Blood Urea Nitrogen 14 9-23 mg/dL Creatinine 0.94 0.700-1.30 mg/dL Glomerular Filtration Rate Calc 85 >90 mL/min BUN/Creatinine Ratio 14.9 10.0-20.0 Serum Glucose 89 74-106 mg/dL Calcium Level 8.8 8.7-10.4 mg/dL Total Bilirubin 0.8 0.2-1.0 mg/dL Aspartate Amino Transferase (AST) 415 H 13-40 U/L Alanine Aminotransferase (ALT) 158 H 7-40 U/L Alkaline Phosphatase 50 46-116 U/L Total Protein 6.0 5.7-8.2 g/dL Albumin 3.8 3.2-4.8 g/dL Urine Color Yellow Yellow Urine Clarity Clear Clear Urine pH 6.0 5.0-9.0 Urine Specific [place] 1.025 1.001-1.035 Urine Protein 1+ H Negative Urine Ketones Trace Negative Urine Blood 3+ H Negative /uL Urine Nitrite Negative Negative Urine Bilirubin Negative Negative Urine Urobilinogen Normal Negative mg/dL Urine Leukocyte Esterase Negative Negative /uL Urine RBC 1 0 - 3 /hpf Urine Microscopic WBC 2 0-3 /HPF Urine Squamous Epithelial Cells Few <5 /hpf Urine Bacteria None seen None Seen /hpf Urine Hyaline Casts Few 0 - 2 /lpf Urine Mucus Few None Seen Urine Glucose Normal Normal mg/dL Troponin I High Sensitivity 147 *H </=54 ng/L Creatine Kinase 8993 H 46-171 U/L B-Type Natriuretic Peptide 71.35 0-100 pg/mL Test 11/20/24 20:15 Range/Units Lactic Acid Level 1.7 0.4-2.0 mmol/L Magnesium Level 1.8 1.6-2.6 mg/dL Assessment * Positive troponins - stable. Atypical chest pain. EKG negative for acute ischemic changes. Likely demand ischemia. Follow up echo. Continue aspirin. * Recurrent falls - patient has T11 fracture with 50% height loss, ortho on board. CT head negative. * COPD exacerbation - * Elevated LFTs - GI on board * HTN - stable, continue current regimen. * Monitor and replace electrolytes. Case Discussed with Dr Bar. Chest pain atypical. Troponins trending stable. Follow up echo. Continue on aspirin. Critical care, time spent: 40 minutes This medical document was created using an electronic medical record system with voice recognition software and computerized dictation system. Although this document has been carefully reviewed, there might still be some phonetic and typographical errors. Occasional wrong-word or ``sound-alike substitutions may have occurred due to the inherent limitations of voice recognition software. These areas are purely typographical due to imperfections of the software programs and do not reflect any compromise in the patient's medical care. Please read the chart carefully and recognize, using context, where these substitutions have occurred. Thank you for allowing me to participate in the management of this patient. The treatment plan was discussed with and agreed upon by patient/family including requesting consultants and ordering of imaging/procedures. Plan discussed with: Patient NYHA Physical activity limitations: Class2(Slight)fatigue,sob Date of Service: Nov 21, 2024 Billing Provider: JOHN MOYA Cardiology Common Codes: 54007-[id number] INP/OBS CARE (High), 24073-[id number] CARE 30-74 MIN JOHN MOYA Nov 21, 2024 15:16
--- NOTE | 2024-11-21 16:16 | DVHCONRES ---
Date Seen: Nov 21, 2024 Resident Creating Document: YOJANA GONG RESIDENT History of Present Illness 74-year-old male patient who presented to the ER with a chief complaint of repeated falls and watery diarrhea for the past 3 weeks. He reports that he experienced fall, twice this week could not get himself to stand. He reports hitting his head. But denies losing consciousness. Also reports diarrhea for the past 3 weeks which is watery and foul-smelling, not fatty. He takes around 12 to 13 medications at home but does not have a med list, denies taking antibiotics recently or being hospitalized. Denies smoking/drinking/drug use. Quit everything 15 years back. Last colonoscopy more than 10 years back. Patient seen and examined at the bedside. Abdomen is tender, could be due to falls. Liver ultrasound ordered. Hepatitis panel ordered Allergies: Coded Allergies: Aspirin (Verified Allergy, Severe, HIVES, 11/21/24) Caffeine (Verified Allergy, Severe, HIVES, 11/21/24) Current Medications Current Medications Medications (Trade) Dose Ordered Sig/Howard Route PRN Reason Start Time Stop Time Status Last Admin Hydralazine HCl (Apresoline Injection) 10 mg Q6HP PRN IV SBP>150 11/21/24 04:00 Amlodipine Besylate (Norvasc Tablet) 5 mg DAILY PO 11/21/24 10:00 11/21/24 10:21 Aspirin 162 mg DAILY PO 11/21/24 10:00 11/21/24 09:57 DC Aspirin 81 mg DAILY PO 11/21/24 10:00 11/21/24 10:20 Sodium Chloride 1,000 ml @ 120 mls/hr Q8H20M IV 11/21/24 04:00 11/21/24 12:20 Acetaminophen/ Hydrocodone Bitart ([place] 5/325MG Tab) 1 tab Q4HP PRN PO MODERATE PAIN (4-6 PAIN SCALE) 11/21/24 04:00 Ondansetron HCl (Zofran) 4 mg Q4HP PRN IV NAUSEA / VOMITING 11/21/24 04:00 Docusate Sodium (Colace Capsule) 100 mg BIDPRN PRN PO FOR CONSTIPATION 11/21/24 04:00 Acetaminophen (Tylenol Tablet) 650 mg Q6HP PRN PO PAIN SCALE 1-3 OR TEMP>100.4 11/21/24 04:00 Nitroglycerin (Ntrostat Sublingual) 0.4 mg Q5MINP PRN SL FOR CHEST PAIN 11/21/24 04:00 Morphine Sulfate 2 mg Q30M PRN IV FOR CHEST PAIN 11/21/24 04:00 Potassium Bicarbonate (Klor-Con/Ef) 50 meq DAILY PO 11/22/24 10:00 Vital Signs Vital Signs Date Time Temp Pulse Resp B/P (MAP) Pulse Ox O2 Delivery O2 Flow Rate FiO2 11/21/24 14:00 68 17 143/68 (93) 92 11/21/24 08:00 98.6 98.6 11/21/24 08:00 Nasal Cannula* 4 36 Physical Exam Patient lying in bed, in no acute distress General: Well-built, afebrile, palor, mucosae are moist Cardiovascular: Regular S1 and S2. No murmurs, gallops or rubs. No JVD elevation. No pedal edema Respiratory: Normal B/L air entry on room air. Clear lung sounds on auscultation Abdomen: Soft, epigastric and right upper quadrant tenderness, nondistended, normoactive bowel sounds, no rebound tenderness, no organomegaly, no masses Genitourinary: Deferred MSK/skin: Mobilizes 4 limbs. Skin is dry and warm Neurological: No motor, no sensitive deficits, normal speech. Pupils are isocoric and reactive. Psych/Mental Status: A/Ox3 Labs/Diagnostic Data Labs Test 11/21/24 06:54 11/21/24 03:00 11/20/24 23:18 11/20/24 21:51 Range/Units White Blood Count 6.3 4.4-10.8 10^3/uL Red Blood Count 4.34 L 4.5-5.90 10^6/uL Hemoglobin 13.4 L 13.5-17.5 g/dL Hematocrit 38.1 #L 41.0-53.0 % Mean Corpuscular Volume 87.8 80.0-100.0 fL Mean Corpuscular Hemoglobin 30.9 28.0-32.0 pg Mean Corpuscular Hemoglobin Concent 35.2 32.0-36.0 g/dL Red Cell Distribution Width 14.3 11.8-14.3 % Platelet Count 106 L 140-450 10^3/uL Mean Platelet Volume 9.1 6.9-10.8 fL Neutrophils (%) (Auto) 74.0 37.0-80.0 % Lymphocytes (%) (Auto) 15.7 10.0-50.0 % Monocytes (%) (Auto) 10.1 0.0-12.0 % Eosinophils (%) (Auto) 0.0 0.0-7.0 % Basophils (%) (Auto) 0.2 0.0-2.0 % Neutrophils # (Auto) 4.7 1.6-8.6 10 ^3/uL Lymphocytes # (Auto) 1.0 0.4-5.4 10 ^3/uL Monocytes # (Auto) 0.6 0-1.3 10 ^3/uL Eosinophils # (Auto) 0 0-0.8 10 ^3/uL Basophils # (Auto) 0 0-0.2 10 ^3/uL Nucleated Red Blood Cells 0.0 % Sodium Level 141 136-145 mmol/L Potassium Level 2.8 L 3.5-5.1 mmol/L Chloride Level 106 98-107 mmol/L Carbon Dioxide Level 27 20-31 mmol/L Anion Gap 8 5-15 Blood Urea Nitrogen 14 9-23 mg/dL Creatinine 0.94 0.700-1.30 mg/dL Glomerular Filtration Rate Calc 85 >90 mL/min BUN/Creatinine Ratio 14.9 10.0-20.0 Serum Glucose 89 74-106 mg/dL Calcium Level 8.8 8.7-10.4 mg/dL Total Bilirubin 0.8 0.2-1.0 mg/dL Aspartate Amino Transferase (AST) 415 H 13-40 U/L Alanine Aminotransferase (ALT) 158 H 7-40 U/L Alkaline Phosphatase 50 46-116 U/L Total Protein 6.0 5.7-8.2 g/dL Albumin 3.8 3.2-4.8 g/dL Urine Color Yellow Yellow Urine Clarity Clear Clear Urine pH 6.0 5.0-9.0 Urine Specific [place] 1.025 1.001-1.035 Urine Protein 1+ H Negative Urine Ketones Trace Negative Urine Blood 3+ H Negative /uL Urine Nitrite Negative Negative Urine Bilirubin Negative Negative Urine Urobilinogen Normal Negative mg/dL Urine Leukocyte Esterase Negative Negative /uL Urine RBC 1 0 - 3 /hpf Urine Microscopic WBC 2 0-3 /HPF Urine Squamous Epithelial Cells Few <5 /hpf Urine Bacteria None seen None Seen /hpf Urine Hyaline Casts Few 0 - 2 /lpf Urine Mucus Few None Seen Urine Glucose Normal Normal mg/dL Troponin I High Sensitivity 147 *H </=54 ng/L Creatine Kinase 8993 H 46-171 U/L B-Type Natriuretic Peptide 71.35 0-100 pg/mL Test 11/20/24 20:15 Range/Units Lactic Acid Level 1.7 0.4-2.0 mmol/L Magnesium Level 1.8 1.6-2.6 mg/dL Assessment Watery diarrhea for 3 weeks ? Likely enterocolitis Transaminitis Elevated troponin ? Rhabdomyolysis History of atrial fibrillation Atypical chest pain Recurrent falls COPD Primary hypertension Hypokalemia Compression fractures of T11 CT abdomen shows mild distal colonic diverticulosis. Mild prostatomegaly with nodular hypertrophy indenting into the bladder. Mild hepatosplenomegaly. Mild emphysema. Fluid containing small and large bowel loops related to enterocolitis Last colonoscopy more than 10-15 years back Plan: Continue IV hydration given elevated CK, replete electrolytes as needed Liver ultrasound for transaminitis. Follow up with blood alcohol level and hepatitis panel Follow up with the stool studies including stool WBC, C diff and stool culture Recommend medication reconciliation and avoiding polypharmacy Follow up with CK levels Outpatient elective colonoscopy Plan discussed with patient in which all questions have been answered Case discussed with Dr. Strong Plan discussed with: Patient YOJANA GONG RESIDENT Nov 21, 2024 16:16
[2024-11-21 16:50] LABS: Benzodiazephine Screen, Urine Neg (NEGATIVE)
[2024-11-21 16:51] LABS: Amphetamine Screen, Urine Neg (NEGATIVE); Barbiturate Scree,Urine Neg (NEGATIVE); Cannabinoid Screen, Urine Neg (NEGATIVE); Cocaine Screen, Urine Neg (NEGATIVE); Opiate Scree,Urine Neg (NEGATIVE); Phencyclidine Screen, Urine Neg (NEGATIVE)
--- NOTE | 2024-11-21 18:04 | DVH ---
Procedure: US LIVER 11/21/2024 05:12 PM Indication: transamnitis Comparison: None Technique: Grayscale and color images of the right upper quadrant were obtained. FINDINGS: ASCITES: None. LIVER: Liver measures 17 cm in craniocaudal. Coarse hepatic echotexture and nodularity of liver cont our. No focal lesion is identified. No intrahepatic ductal dilatation. Normal directional flow is s een in the portal vein. GALLBLADDER: No gallstones. No gallbladder wall edema or pericholecystic fluid. Gallbladder wall th ickness is 0.2 cm. Sonographic Tavarez's sign is negative. COMMON BILE DUCT: 0.4 cm in caliber. PANCREAS: Visualized portions are unremarkable. RIGHT KIDNEY: 10.8 cm in length. No hydronephrosis. No lesions identified. AORTA, IVC: Visualized portions are unremarkable. OTHER: None. IMPRESSION: 1. No sonographic evidence for acute abnormality in the right upper quadrant. 2. Suggestion of cirrhosis.
[2024-11-21 19:45] VITALS: PULSE 71; RESP 16; O2SAT 90
--- NOTE | 2024-11-21 21:30 | DVHINCON2 ---
Date Seen: Nov 21, 2024 Referring Physician Neftaly Reason for Consultation Positive troponins History of Present Illness This is a 74-year-old male with PMH of COPD, HTN, chronic back pain who presented to the ED with complaints of multiple falls at home. The patient fell and was unable to get up and therefore EMS was called. Apparently patient has been feeling generalized weakness and shortness of breath having increased c ongestion productive cough. Patient denies any lightheadedness, syncope. Patient noted to have mildly elevated troponins trending 146, 152, 147. Endorses chest pain, pressure in nature, intermittent, worsens with deep inhalation and reproducible with cough. CT head negative for acute pathology, noted microvascular ischemic changes. CK 8993. K 2.8. Mildly Elevated AST and ALT. EKG reviewed and shows sinus rhythm at 60 beats per minute, no acute ST abnormalities noted. Patient was admitted to the hospital. I am asked to consult on this patient. Past Medical History HTN COPD Past Surgical History Denies previous cardiac surgeries Allergies: Coded Allergies: Aspirin (Verified Allergy, Severe, HIVES, 11/21/24) Caffeine (Verified Allergy, Severe, HIVES, 11/21/24) Current Medications Current Medications Medications (Trade) Dose Ordered Sig/Howard Route PRN Reason Start Time Stop Time Status Last Admin Hydralazine HCl (Apresoline Injection) 10 mg Q6HP PRN IV SBP>150 11/21/24 04:00 Amlodipine Besylate (Norvasc Tablet) 5 mg DAILY PO 11/21/24 10:00 11/21/24 10:21 Aspirin 162 mg DAILY PO 11/21/24 10:00 11/21/24 09:57 DC Aspirin 81 mg DAILY PO 11/21/24 10:00 11/21/24 10:20 Sodium Chloride 1,000 ml @ 120 mls/hr Q8H20M IV 11/21/24 04:00 11/21/24 12:20 Acetaminophen/ Hydrocodone Bitart ([place] 5/325MG Tab) 1 tab Q4HP PRN PO MODERATE PAIN (4-6 PAIN SCALE) 11/21/24 04:00 Ondansetron HCl (Zofran) 4 mg Q4HP PRN IV NAUSEA / VOMITING 11/21/24 04:00 Docusate Sodium (Colace Capsule) 100 mg BIDPRN PRN PO FOR CONSTIPATION 11/21/24 04:00 Acetaminophen (Tylenol Tablet) 650 mg Q6HP PRN PO PAIN SCALE 1-3 OR TEMP>100.4 11/21/24 04:00 Nitroglycerin (Ntrostat Sublingual) 0.4 mg Q5MINP PRN SL FOR CHEST PAIN 11/21/24 04:00 Morphine Sulfate 2 mg Q30M PRN IV FOR CHEST PAIN 11/21/24 04:00 Potassium Bicarbonate (Klor-Con/Ef) 50 meq DAILY PO 11/22/24 10:00 Review of Systems Constitutional: No: Fever, Chills, Sweats, , Other positive: Weakness, Malaise Eyes: No: Pain, Vision change, Conjunctivae inflammation, Eyelid inflammation, Other, Redness ENT: No: Ear pain, Ear discharge, Nose pain, Nose discharge, Nose congestion, Mouth pain, Mouth swelling, Throat pain, Throat swelling, Other Respiratory: No: , Dry, , Wheezing, Hemoptysis, Pleuritic Pain, Sputum, Wheezing, Other positive: Cough, Shortness of breath, SOB with exertion Cardiovascular: ; No: Palpitations, Orthopnea, Paroxysmal Noc. Dyspnea, Edema, Lt Headedness, Other positive: Chest Pain Gastrointestinal: No: Nausea, Vomiting, Abdominal Pain, Diarrhea, Constipation, Melena, Hematochezia, Other Genitourinary: No Dysuria, No Frequency, No Incontinence, No Hematuria, No Retention, No Other Musculoskeletal: neck pain; No: other, shoulder pain, arm pain, back pain, hand pain, leg pain, foot pain Skin: No: Rash, Lesions, Jaundice, Bruising, Other Neurological: Other (Dizziness, headache.); No: Weakness, Numbness, Incoordination, Change in speech, Confusion, Seizures Vital Signs Vital Signs Date Time Temp Pulse Resp B/P (MAP) Pulse Ox O2 Delivery O2 Flow Rate FiO2 11/21/24 12:00 54 17 119/59 (79) 92 11/21/24 08:00 98.6 98.6 11/21/24 08:00 Nasal Cannula* 4 36 Physical Exam GENERAL: Awake, alert, oriented. Ill appearing. LUNGS: Coarse breath sounds. CARDIOVASCULAR: Heart sounds are good. ABDOMEN: Soft. Labs/Diagnostic Data Labs Test 11/21/24 06:54 11/21/24 03:00 11/20/24 23:18 11/20/24 21:51 Range/Units White Blood Count 6.3 4.4-10.8 10^3/uL Red Blood Count 4.34 L 4.5-5.90 10^6/uL Hemoglobin 13.4 L 13.5-17.5 g/dL Hematocrit 38.1 #L 41.0-53.0 % Mean Corpuscular Volume 87.8 80.0-100.0 fL Mean Corpuscular Hemoglobin 30.9 28.0-32.0 pg Mean Corpuscular Hemoglobin Concent 35.2 32.0-36.0 g/dL Red Cell Distribution Width 14.3 11.8-14.3 % Platelet Count 106 L 140-450 10^3/uL Mean Platelet Volume 9.1 6.9-10.8 fL Neutrophils (%) (Auto) 74.0 37.0-80.0 % Lymphocytes (%) (Auto) 15.7 10.0-50.0 % Monocytes (%) (Auto) 10.1 0.0-12.0 % Eosinophils (%) (Auto) 0.0 0.0-7.0 % Basophils (%) (Auto) 0.2 0.0-2.0 % Neutrophils # (Auto) 4.7 1.6-8.6 10 ^3/uL Lymphocytes # (Auto) 1.0 0.4-5.4 10 ^3/uL Monocytes # (Auto) 0.6 0-1.3 10 ^3/uL Eosinophils # (Auto) 0 0-0.8 10 ^3/uL Basophils # (Auto) 0 0-0.2 10 ^3/uL Nucleated Red Blood Cells 0.0 % Sodium Level 141 136-145 mmol/L Potassium Level 2.8 L 3.5-5.1 mmol/L Chloride Level 106 98-107 mmol/L Carbon Dioxide Level 27 20-31 mmol/L Anion Gap 8 5-15 Blood Urea Nitrogen 14 9-23 mg/dL Creatinine 0.94 0.700-1.30 mg/dL Glomerular Filtration Rate Calc 85 >90 mL/min BUN/Creatinine Ratio 14.9 10.0-20.0 Serum Glucose 89 74-106 mg/dL Calcium Level 8.8 8.7-10.4 mg/dL Total Bilirubin 0.8 0.2-1.0 mg/dL Aspartate Amino Transferase (AST) 415 H 13-40 U/L Alanine Aminotransferase (ALT) 158 H 7-40 U/L Alkaline Phosphatase 50 46-116 U/L Total Protein 6.0 5.7-8.2 g/dL Albumin 3.8 3.2-4.8 g/dL Urine Color Yellow Yellow Urine Clarity Clear Clear Urine pH 6.0 5.0-9.0 Urine Specific [place] 1.025 1.001-1.035 Urine Protein 1+ H Negative Urine Ketones Trace Negative Urine Blood 3+ H Negative /uL Urine Nitrite Negative Negative Urine Bilirubin Negative Negative Urine Urobilinogen Normal Negative mg/dL Urine Leukocyte Esterase Negative Negative /uL Urine RBC 1 0 - 3 /hpf Urine Microscopic WBC 2 0-3 /HPF Urine Squamous Epithelial Cells Few <5 /hpf Urine Bacteria None seen None Seen /hpf Urine Hyaline Casts Few 0 - 2 /lpf Urine Mucus Few None Seen Urine Glucose Normal Normal mg/dL Troponin I High Sensitivity 147 *H </=54 ng/L Creatine Kinase 8993 H 46-171 U/L B-Type Natriuretic Peptide 71.35 0-100 pg/mL Test 11/20/24 20:15 Range/Units Lactic Acid Level 1.7 0.4-2.0 mmol/L Magnesium Level 1.8 1.6-2.6 mg/dL Assessment Positive troponins. Atypical chest pain. Recurrent falls. T11 fracture with 50% height loss. COPD exacerbation. Elevated LFTs. HTN. Plan/Recommendation I agree with your ongoing assessment and care of plan. Patient has been seen by Biju Angelo BUILDING ECONOMIST on my behalf, him and I discussed the plan with the patient. EKG negative for acute ischemic changes. Likely demand ischemia. Echocardiogram. Continue aspirin. Amlodipine. IV Hydralazine for SBP > 150. [place] and Morphine for pain management. Nitro SL. Monitor and replace electrolytes. GI on board. Additional plan as per the hospital course. Plan discussed with: Patient NYHA Physical activity limitations: Class2(Slight)fatigue,sob Date of Service: Nov 21, 2024 Billing Provider: ESAU BLANCHARD MD Cardiology Common Codes: 02009-[id number] INP/OBS CARE (High), [id number] CAR E 30-74 MIN ESAU BLANCHARD MD Nov 21, 2024 15:55
[2024-11-22 01:58] LABS: COVID19 ANTIGEN SOFIA FIA NEGATIVE (NEGATIVE)
[2024-11-22 02:01] LABS: Rapid Influenza B Negative (Negative)
[2024-11-22 02:02] LABS: Rapid Influenza A Positive (Negative)
[2024-11-22 03:25] VITALS: PULSE 57; RESP 18; O2SAT 91
[2024-11-22 03:44] LABS: Basophils # (auto) 0 10 ^3/uL (0-0.2); Basophils % (auto) 0.2 % (0.0-2.0); Eosinophils # (auto) 0 10 ^3/uL (0-0.8); Hematocrit 38.5 % (41.0-53.0); Hemoglobin 13.4 g/dL (13.5-17.5); Lymphocytes # (auto) 0.8 10 ^3/uL (0.4-5.4); Lymphocytes % (auto) 11.2 % (10.0-50.0); Mean Corpuscular Hemoglobin 30.3 pg (28.0-32.0); Mean Corpuscular Hgb Conc. 34.7 g/dL (32.0-36.0); Mean Corpuscular Volume 87.5 fL (80.0-100.0); Monocytes # (auto) 0.5 10 ^3/uL (0-1.3); Monocytes % (auto) 7.6 % (0.0-12.0); Neutrophils # (auto) 5.5 10 ^3/uL (1.6-8.6); Platelet Count (auto) 102 10^3/uL (140-450); Red Cell Distribution Width 14.1 % (11.8-14.3); White Blood Cell 6.8 10^3/uL (4.4-10.8)
[2024-11-22 04:02] LABS: INR 1.01 (0.9-1.15); Partial Thromboplastin Time 34.7 SEC (24.5-34.5); Prothrombin Time 10.7 sec (9.3-11.8)
[2024-11-22 04:10] LABS: Albumin 3.4 g/dL (3.2-4.8); Alkaline Phosphatase 52 U/L (46-116); Anion Gap 9 (5-15); BUN/Creatinine Ratio 22.7 (10.0-20.0); Blood Urea Nitrogen 17 mg/dL (9-23); Calcium 8.9 mg/dL (8.7-10.4); Carbon Dioxide 25 mmol/L (20-31); Chloride 103 mmol/L (98-107); Glucose 86 mg/dL (74-106); Sodium 137 mmol/L (136-145)
[2024-11-22 04:14] LABS: Alanine Aminotransferase 185 U/L (7-40); Aspartate Aminotransferase 471 U/L (13-40); Potassium 3.3 mmol/L (3.5-5.1); Total Protein 5.2 g/dL (5.7-8.2)
--- NOTE | 2024-11-22 08:13 | DVHPN2 ---
Reviewed: Care Plan, H&P, Labs, Medications, Previous Orders, Radiology Changes from previous H/P or p: No Changes Eyes: No Pain, No Vision change, No Conjunctivae inflammation, No Eyelid inflammation, No Other, No Redness ENT: No Ear pain, No Ear discharge, No Nose pain, No Nose discharge, No Nose congestion, No Mouth pain, No Mouth swelling, No Throat pain, No Throat swelling, No Other Cardiovascular: No Chest Pain, No Palpitations, No Orthopnea, No Paroxysmal Noc. Dyspnea, No Edema, No Lt Headedness, No Other Respiratory: No Cough, No Dry, No Shortness of breath, No SOB with excertion, No Wheezing, No Hemoptysis, No Pleuritic Pain, No Sputum, No Other Gastrointestinal: No Nausea, No Vomiting, No Abdominal Pain, No Diarrhea, No Constipation, No Melena, No Hematochezia, No Other Genitourinary: No Dysuria, No Frequency, No Incontinence, No Hematuria, No Retention, No Other Musculoskeletal: No other, No neck pain, No shoulder pain, No arm pain; back pain; No hand pain, No leg pain, No foot pain Skin: No Rash, No Lesions, No Jaundice, No Bruising, No Other Objective Vitals Vital Signs Date Time Temp Pulse Resp B/P (MAP) Pulse Ox O2 Delivery O2 Flow Rate FiO2 11/22/24 06:00 54 23 152/57 (88) 93 11/22/24 03:25 Nasal Cannula* 5 40 11/21/24 19:45 98.1 98.1 Intake/Output Intake and Output 11/22/24 07:00 Intake Total 1080 ml Output Total 652 ml Balance 428 ml Intake IV Total 1080 ml Output Urine Total 650 ml Stool Total 2 ml Medications Current Medications Medications Dose Ordered Sig/Howard Route Start Time Stop Time Status Last Admin Dose Admin Hydralazine HCl 10 mg Q6HP PRN IV 11/21/24 04:00 Amlodipine Besylate 5 mg DAILY PO 11/21/24 10:00 11/21/24 10:21 5 MG Aspirin 81 mg DAILY PO 11/21/24 10:00 11/21/24 10:20 81 MG Sodium Chloride 1,000 ml @ 120 mls/hr Q8H20M IV 11/21/24 04:00 11/21/24 21:19 120 MLS/HR Acetaminophen/ Hydrocodone Bitart 1 tab Q4HP PRN PO 11/21/24 04:00 Ondansetron HCl 4 mg Q4HP PRN IV 11/21/24 04:00 Docusate Sodium 100 mg BIDPRN PRN PO 11/21/24 04:00 Acetaminophen 650 mg Q6HP PRN PO 11/21/24 04:00 Nitroglycerin 0.4 mg Q5MINP PRN SL 11/21/24 04:00 Morphine Sulfate 2 mg Q30M PRN IV 11/21/24 04:00 Potassium Bicarbonate 50 meq DAILY PO 11/22/24 10:00 Laboratory Results Laboratory Tests 11/22/24 03:28 Chemistry Test 11/21/24 16:40 11/22/24 03:28 Phosphorus Level 1.8 mg/dL (2.4-5.1) L Albumin 3.4 g/dL (3.2-4.8) Calcium Level 8.9 mg/dL (8.7-10.4) Total Protein 5.2 g/dL (5.7-8.2) L Coagulation Test 11/22/24 03:28 Prothrombin Time 10.7 sec (9.3-11.8) Prothrombin Time INR 1.01 (0.9-1.15) Activated Partial Thromboplast Time 34.7 SEC (24.5-34.5) H LFT Test 11/22/24 03:28 Alanine Aminotransferase (ALT) 185 U/L (7-40) H Alkaline Phosphatase 52 U/L (46-116) Aspartate Amino Transferase (AST) 471 U/L (13-40) H Total Bilirubin 1.0 mg/dL (0.2-1.0) HgA1c, TSH Test 11/21/24 16:40 Thyroid Stimulating Hormone (TSH) 1.10 uIU/mL (0.55-4.78) Urinalysis Test 11/21/24 03:00 Urine Color Yellow (Yellow) Urine Clarity Clear (Clear) Urine pH 6.0 (5.0-9.0) Urine Specific [place] 1.025 (1.001-1.035) Urine Protein 1+ (Negative) H Urine Ketones Trace (Negative) Urine Blood 3+ /uL (Negative) H Urine Nitrite Negative (Negative) Urine Bilirubin Negative (Negative) Urine Urobilinogen Normal mg/dL (Negative) Urine Leukocyte Esterase Negative /uL (Negative) Urine RBC 1 /hpf (0 - 3) Urine Microscopic WBC 2 /HPF (0-3) Urine Squamous Epithelial Cells Few /hpf (<5) Urine Bacteria None seen /hpf (None Seen) Urine Hyaline Casts Few /lpf (0 - 2) Urine Mucus Few (None Seen) Urine Glucose Normal mg/dL (Normal) Labs and/or images reviewed: Labs reviewed by me, Image(s) reviewed by me Assessment/Plan Assessment/Plan Flu type A: Tamiflu Acute rhabdomyolysis with CPK 4900, IV fluids Acute enterocolitis: GI consult appreciated Acute generalized weakness Recurrent falls T11 fracture with 50 percent height loss: Orthopedic consult for Dr Nieto Acute hypokalemia potassium 2.9: Replace potassium Elevated troponin 146: Consult by Dr. Bar BPH History of AFib Acute on chronic COPD exacerbation Hypertension Chronic back pain CT head negative C-spine CT negative Elevated liver function tests: Consult for GI Dr. Sherie Strong appreciated Condition guarded Time spent 65 minutes Advanced care planning time 20 minutes Patient is full code Plan discussed with: Patient My Orders Orders - ANTHONY FLORES MD Procedure Category Date Status Time Potassium Effervesent PHA 11/22/24 In Process Tab (Klor-Con/Ef) 10:00 * Cardiology Consult CONS 11/21/24 Transmitted 13:48 * Gi D[facility] Potato Loader CONS 11/21/24 Transmitted 13:52 Date of Service: Nov 22, 2024 Billing Provider: ANTHONY FLORES MD Common Visit Codes: [id number] CARE 30-74 MIN ANTHONY FLORES MD Nov 22, 2024 08:13
[2024-11-22 10:15] VITALS: PULSE 54; RESP 19; O2SAT 88
[2024-11-22] MEDS: OSELTAMIVIR 75 MG CAP PO SCH (11:25)
[2024-11-22] MEDS: POTASSIUM EFFERVESENT TAB 25 MEQ PO SCH (11:26)
[2024-11-22 19:30] VITALS: O2SAT 90
--- NOTE | 2024-11-22 20:12 | DVHPN2 ---
Progress Note - Dictate Date Seen: Nov 22, 2024 Medical Necessity Reason Pt with a Central, PICC or Fol: No Subjective No new complaints Patient is resting comfortably There was no nausea vomiting or diarrhea reported Patient is on isolation because he tested positive for influenza A Patient also has evidence of rhabdomyolysis with elevated CPK and positive blood in urine without RBC Mild persistent elevation in liver enzymes and troponins CPK is starting to trend downwards vital signs Vital Sign Date Time Temp Pulse Resp B/P (MAP) Pulse Ox O2 Delivery O2 Flow Rate FiO2 11/22/24 18:58 61 11/22/24 18:00 23 157/58 (91) 93 11/22/24 10:15 Nasal Cannula* 4 36 11/21/24 19:45 98.1 98.1 Total Intake and Output 11/21/24 11/21/24 11/22/24 15:00 23:00 07:00 Intake Total 600 ml 480 ml Output Total 350 ml 302 ml Balance 250 ml -302 ml 480 ml medications Current Medications Medications Dose Ordered Sig/Howard Route Start Time Stop Time Status Last Admin Dose Admin Hydralazine HCl 10 mg Q6HP PRN IV 11/21/24 04:00 Amlodipine Besylate 5 mg DAILY PO 11/21/24 10:00 11/22/24 11:25 5 MG Aspirin 81 mg DAILY PO 11/21/24 10:00 11/22/24 11:24 81 MG Sodium Chloride 1,000 ml @ 120 mls/hr Q8H20M IV 11/21/24 04:00 11/22/24 13:25 120 MLS/HR Acetaminophen/ Hydrocodone Bitart 1 tab Q4HP PRN PO 11/21/24 04:00 Ondansetron HCl 4 mg Q4HP PRN IV 11/21/24 04:00 Docusate Sodium 100 mg BIDPRN PRN PO 11/21/24 04:00 Acetaminophen 650 mg Q6HP PRN PO 11/21/24 04:00 Nitroglycerin 0.4 mg Q5MINP PRN SL 11/21/24 04:00 Morphine Sulfate 2 mg Q30M PRN IV 11/21/24 04:00 Potassium Bicarbonate 50 meq DAILY PO 11/22/24 10:00 11/22/24 11:26 50 MEQ Oseltamivir Phosphate 75 mg BID PO 11/22/24 10:00 11/26/24 09:59 11/22/24 11:25 75 MG objective Patient lying in bed, in no acute distress General: Well-built, afebrile, palor, mucosae are moist Cardiovascular: Regular S1 and S2. No murmurs, gallops or rubs. No JVD elevation. No pedal edema Respiratory: Normal B/L air entry on room air. Clear lung sounds on auscultation Abdomen: Soft, mild upper abdominal tenderness, nondistended, normoactive bowel sounds, no rebound tenderness, no organomegaly, no masses MSK/skin: Mobilizes 4 limbs. Skin is dry and warm Neurological: No motor, no sensitive deficits, normal speech. Pupils are isocoric and reactive. Psych/Mental Status: A/Ox3 laboratory and microbiology Laboratory Tests 11/22/24 03:28 Test 11/22/24 03:28 Range/Units Serum Glucose 86 74-106 mg/dL Liver USG IMPRESSION: 1. No sonographic evidence for acute abnormality in the right upper quadrant. 2. Suggestion of cirrhosis. CT SCAN ABD PELVIS IMPRESSION: 1. Moderate greater than 50% height loss compression fracture of T11 with diffuse sclerosis of the vertebral body likely healing/subacute. 2. No noncontrast evidence of acute visceral injury or acute fracture. 3. Mild hepatosplenomegaly 4. Fluid containing small and large bowel loops which may be physiologic or related to enterocolitis 5. Mild emphysema. 6. At least mild coronary artery and aortic valve calcifications, greatest in the left anterior descending coronary artery. 7. Mild distal colonic diverticulosis 8. Mild prostatomegaly with nodular hypertrophy indenting into the bladder base. Problems(with codes): (1) Rhabdomyolysis (2) Wedge compression fracture of T11-T12 vertebra, initial encounter for closed fracture (3) Frequent falls (4) Elevated troponin (5) Diarrhea (6) Generalized weakness (7) Aortic valve calcification (8) Elevated liver enzymes Prognosis Plan Check hepatitis panel Review alcohol history Suspected mild cirrhosis on ultrasound and hepatosplenomegaly on CT abdomen PT INR is acceptable and meld score is low Continue to monitor labs We will follow up patient with you Correct rhabdomyolysis with IV fluid hydration and bicarbonate Discontinued any medications that can predispose to rhabdomyolysis like statins Plan discussed with: Patient, Other MELY FRANCO MD Nov 22, 2024 20:12
[2024-11-22 21:55] VITALS: BP 121/73; PULSE 70; PULSE 98; RESP 17; RESP 18; TEMP 98.9; O2SAT 90; O2SAT 98
[2024-11-22 22:00] VITALS: BP 124/73; PULSE 70; RESP 17; TEMP 98; O2SAT 90
--- NOTE | 2024-11-22 22:49 | DVHSR ---
APPROVED REPORT EXAM: LIMITED Two-dimensional and M-mode echocardiogram with Doppler and color Doppler. Blood Pressure: 152/57 mmHg INDICATION Positive Troponin RISK FACTORS Height: 5' 9", Weight: 210 DIMENSIONS LVDd4.7 (3.8-5.7cm)LA (2D)3.7 (1.9-4.0cm)Aortic Root3.1 (2.0-3.7cm) LVDs3.1 (2.5-4.0cm)LA (MM) (1.9-4.0cm)Aortic Cusp Exc1.8 (1.5-2.0cm) EF (%) 62.0 (55-70%)Rt. Atrium3.4 (1.9-4.0cm)Asc. Aorta cm IVSd1.1 (0.7-1.1cm)RV (D) (1.8-2.4cm) PWd1.1 (0.7-1.1cm) Mitral Valve MitralMitral Stenosis E wave0.70m/sMV Mean GR.mmHg A wave1.00m/sMV Peak GR.mmHg E/A ratio0.72D MVAcm2 Aortic Valve Aortic ValveAortic Stenosis V11.20m/Gibran Mean GR.5mmHg V21.50m/Gibran Peak GR.10mmHg LVOT Diameter2.3 (1.8-2.4cm)Doppler AVA3.32cm2 AI P 1/2 Zhmd010.26ms Other Information Quality : Technically LimitedRhythm : Technically limited study due to body habitus and patient position. Conclusion MILD LVH AND MILD LV DIASTOLIC DYSFUNCTION LV EJECTION FRACTION IS 65% AORTIC SCLEROSIS MILD AORTIC REGURGITATION NORMAL MV,TV AND PV
--- NOTE | 2024-11-22 23:06 | DVHPN2 ---
Progress Note - Dictate Date Seen: Nov 22, 2024 Medical Necessity Reason Pt with a Central, PICC or Fol: No Subjective Patient was seen and evaluated in follow up. Patient is complaining of generalized weakness. K 3.3, AST 471, ALT 185, Creatine kinase 4985. Stool occult blood is pending. Telemetry reviewed. vital signs Vital Sign Date Time Temp Pulse Resp B/P (MAP) Pulse Ox O2 Delivery O2 Flow Rate FiO2 11/22/24 18:58 61 11/22/24 18:00 23 157/58 (91) 93 11/22/24 10:15 Nasal Cannula* 4 36 11/21/24 19:45 98.1 98.1 Total Intake and Output 11/21/24 11/21/24 11/22/24 15:00 23:00 07:00 Intake Total 600 ml 480 ml Output Total 350 ml 302 ml Balance 250 ml -302 ml 480 ml medications Current Medications Medications Dose Ordered Sig/Howard Route Start Time Stop Time Status Last Admin Dose Admin Hydralazine HCl 10 mg Q6HP PRN IV 11/21/24 04:00 Amlodipine Besylate 5 mg DAILY PO 11/21/24 10:00 11/22/24 11:25 5 MG Aspirin 81 mg DAILY PO 11/21/24 10:00 11/22/24 11:24 81 MG Sodium Chloride 1,000 ml @ 120 mls/hr Q8H20M IV 11/21/24 04:00 11/22/24 13:25 120 MLS/HR Acetaminophen/ Hydrocodone Bitart 1 tab Q4HP PRN PO 11/21/24 04:00 Ondansetron HCl 4 mg Q4HP PRN IV 11/21/24 04:00 Docusate Sodium 100 mg BIDPRN PRN PO 11/21/24 04:00 Acetaminophen 650 mg Q6HP PRN PO 11/21/24 04:00 Nitroglycerin 0.4 mg Q5MINP PRN SL 11/21/24 04:00 Morphine Sulfate 2 mg Q30M PRN IV 11/21/24 04:00 Potassium Bicarbonate 50 meq DAILY PO 11/22/24 10:00 11/22/24 11:26 50 MEQ Oseltamivir Phosphate 75 mg BID PO 11/22/24 10:00 11/26/24 09:59 11/22/24 11:25 75 MG objective GENERAL: Awake, alert, oriented. Ill appearing. LUNGS: Coarse breath sounds. CARDIOVASCULAR: Heart sounds are good. ABDOMEN: Soft. laboratory and microbiology Laboratory Tests 11/22/24 03:28 Test 11/22/24 03:28 Range/Units Serum Glucose 86 74-106 mg/dL Problem List Positive troponins. Atypical chest pain. Recurrent falls. T11 fracture with 50% height loss. COPD exacerbation. Elevated LFTs. HTN. Assessment/Plan Continued all current supportive medical care. Echocardiogram. Morphine and [place] for pain management. Amlodipine. Aspirin. IV Hydralazine for an SPB > 150. Nitro SL. Additional plan as per the hospital course. Plan discussed with: Patient ESAU BLANCHARD MD Nov 22, 2024 20:07
[2024-11-23] VITALS (7 sets, daily range): BP systolic 126–166; BP diastolic 58–79; PULSE 56–80; RESP 17–20; TEMP 97.6–98.9; O2SAT 90–93
[2024-11-23 08:53] LABS: Hepatitis B Surface Antibody Negative (Negative)
[2024-11-23 09:01] LABS: Hepatitis B Surface Antigen Negative (Negative)
[2024-11-23 09:21] LABS: Hepatitis C Antibody Negative (Negative)
--- NOTE | 2024-11-23 09:44 | DVHPN2 ---
Reviewed: Care Plan, H&P, Labs, Medications, Previous Orders, Radiology Changes from previous H/P or p: No Changes Eyes: No Pain, No Vision change, No Conjunctivae inflammation, No Eyelid inflammation, No Other, No Redness ENT: No Ear pain, No Ear discharge, No Nose pain, No Nose discharge, No Nose congestion, No Mouth pain, No Mouth swelling, No Throat pain, No Throat swelling, No Other Cardiovascular: No Chest Pain, No Palpitations, No Orthopnea, No Paroxysmal Noc. Dyspnea, No Edema, No Lt Headedness, No Other Respiratory: No Cough, No Dry, No Shortness of breath, No SOB with excertion, No Wheezing, No Hemoptysis, No Pleuritic Pain, No Sputum, No Other Gastrointestinal: No Nausea, No Vomiting, No Abdominal Pain, No Diarrhea, No Constipation, No Melena, No Hematochezia, No Other Genitourinary: No Dysuria, No Frequency, No Incontinence, No Hematuria, No Retention, No Other Musculoskeletal: No other, No neck pain, No shoulder pain, No arm pain; back pain; No hand pain, No leg pain, No foot pain Skin: No Rash, No Lesions, No Jaundice, No Bruising, No Other Objective Vitals Vital Signs Date Time Temp Pulse Resp B/P (MAP) Pulse Ox O2 Delivery O2 Flow Rate FiO2 11/23/24 08:05 Nasal Cannula* 5 40 11/23/24 01:00 98.9 66 20 139/58 (85) 91 98.9 Intake/Output Intake and Output 11/23/24 07:00 Intake Total 2360 ml Output Total 650 ml Balance 1710 ml Intake Oral 800 ml IV Total 1560 ml Output Urine Total 650 ml # Voids 2 # Bowel Movements 1 Medications Current Medications Medications Dose Ordered Sig/Howard Route Start Time Stop Time Status Last Admin Dose Admin Hydralazine HCl 10 mg Q6HP PRN IV 11/21/24 04:00 Amlodipine Besylate 5 mg DAILY PO 11/21/24 10:00 11/22/24 11:25 5 MG Aspirin 81 mg DAILY PO 11/21/24 10:00 11/22/24 11:24 81 MG Sodium Chloride 1,000 ml @ 120 mls/hr Q8H20M IV 11/21/24 04:00 11/22/24 13:25 120 MLS/HR Acetaminophen/ Hydrocodone Bitart 1 tab Q4HP PRN PO 11/21/24 04:00 Ondansetron HCl 4 mg Q4HP PRN IV 11/21/24 04:00 Docusate Sodium 100 mg BIDPRN PRN PO 11/21/24 04:00 Acetaminophen 650 mg Q6HP PRN PO 11/21/24 04:00 Nitroglycerin 0.4 mg Q5MINP PRN SL 11/21/24 04:00 Morphine Sulfate 2 mg Q30M PRN IV 11/21/24 04:00 Potassium Bicarbonate 50 meq DAILY PO 11/22/24 10:00 11/22/24 11:26 50 MEQ Oseltamivir Phosphate 75 mg BID PO 11/22/24 10:00 11/26/24 09:59 11/22/24 23:48 75 MG Laboratory Results Laboratory Tests 11/22/24 03:28 Urinalysis Test 11/21/24 03:00 Urine Color Yellow (Yellow) Urine Clarity Clear (Clear) Urine pH 6.0 (5.0-9.0) Urine Specific [place] 1.025 (1.001-1.035) Urine Protein 1+ (Negative) H Urine Ketones Trace (Negative) Urine Blood 3+ /uL (Negative) H Urine Nitrite Negative (Negative) Urine Bilirubin Negative (Negative) Urine Urobilinogen Normal mg/dL (Negative) Urine Leukocyte Esterase Negative /uL (Negative) Urine RBC 1 /hpf (0 - 3) Urine Microscopic WBC 2 /HPF (0-3) Urine Squamous Epithelial Cells Few /hpf (<5) Urine Bacteria None seen /hpf (None Seen) Urine Hyaline Casts Few /lpf (0 - 2) Urine Mucus Few (None Seen) Urine Glucose Normal mg/dL (Normal) Microbiology Microbiology Date/Time Source Procedure Growth Status 11/22/24 19:01 Stool Stool Culture - Preliminary Resulted 11/22/24 19:01 Stool Shiga Toxin I & II Pending Resulted Labs and/or images reviewed: Labs reviewed by me, Image(s) reviewed by me Assessment/Plan Assessment/Plan Flu type A: Tamiflu Acute rhabdomyolysis with CPK 4900, IV fluids Acute enterocolitis: GI consult appreciated Acute generalized weakness Recurrent falls Acute dehydration NS 150 per hr T11 fracture with 50 percent height loss: Orthopedic consult for Dr Nieto Acute hypokalemia potassium 2.9: Replace potassium Elevated troponin 146: Consult by Dr. Bar BPH History of AFib Acute on chronic COPD exacerbation Hypertension Chronic back pain CT head negative C-spine CT negative Elevated liver function tests: Consult for GI Dr. Sherie Strong appreciated Condition guarded Time spent 65 minutes Advanced care planning time 20 minutes Patient is full code Plan discussed with: Patient Date of Service: Nov 23, 2024 Billing Provider: ATNHONY FLORES MD Common Visit Codes: [id number] CARE 30-74 MIN ANTHONY FLORES MD Nov 23, 2024 09:44
[2024-11-23] MEDS: SODIUM CHLORIDE 0.9% 1,000 ML IV SCH (09:45)
--- NOTE | 2024-11-23 17:15 | DVHPNRES ---
Progress Note Date Seen: Nov 23, 2024 Resident Creating Document: SUKUMAR CARDENAS RESIDENT Medical Necessity Reason Pt with a Central, PICC or Fol: No Subjective Review of Systems No new complaints. Patient does not have any acute complaints. No nausea, vomiting or diarrhea. Patient continued to be treated for influenza. CPK level is trending down. Mild elevation of liver enzymes. No chest pain or new any other symptoms. Objective vital signs Vital Sign Date Time Temp Pulse Resp B/P (MAP) Pulse Ox O2 Delivery O2 Flow Rate FiO2 11/23/24 13:00 97.6 61 17 138/72 (94) 91 97.6 11/23/24 08:05 Nasal Cannula* 5 40 Total Intake and Output 11/22/24 11/22/24 11/23/24 15:00 23:00 07:00 Intake Total 840 ml 720 ml 800 ml Output Total 650 ml Balance 840 ml 70 ml 800 ml medications Current Medications Medications Dose Ordered Sig/Howard Route Start Time Stop Time Status Last Admin Dose Admin Hydralazine HCl 10 mg Q6HP PRN IV 11/21/24 04:00 Amlodipine Besylate 5 mg DAILY PO 11/21/24 10:00 11/23/24 11:16 5 MG Aspirin 81 mg DAILY PO 11/21/24 10:00 11/23/24 11:14 81 MG Acetaminophen/ Hydrocodone Bitart 1 tab Q4HP PRN PO 11/21/24 04:00 Ondansetron HCl 4 mg Q4HP PRN IV 11/21/24 04:00 Docusate Sodium 100 mg BIDPRN PRN PO 11/21/24 04:00 Acetaminophen 650 mg Q6HP PRN PO 11/21/24 04:00 Nitroglycerin 0.4 mg Q5MINP PRN SL 11/21/24 04:00 Morphine Sulfate 2 mg Q30M PRN IV 11/21/24 04:00 Potassium Bicarbonate 50 meq DAILY PO 11/22/24 10:00 11/23/24 11:15 50 MEQ Oseltamivir Phosphate 75 mg BID PO 11/22/24 10:00 11/26/24 09:59 11/23/24 11:16 75 MG Sodium Chloride 1,000 ml @ 150 mls/hr Q6H40M IV 11/23/24 09:45 11/23/24 16:52 150 MLS/HR Examination General Appearance: Cooperative. Well developed. Well nourished. NAD Head Exam: Normal inspection Neck Exam: Normal inspection. Non-tender. Normal alignment Pulmonary/Respiratory: Chest non-tender. Clear bilateral breath sounds Cardiovascular/Chest: Regular rate and rhythm. No murmurs. No JVD. Peripheral Pulses: 2+ Radial (R). 2+ Radial (L). 2+ Pedal (R). 2+ Pedal (L) Abdominal Exam: Normal bowel sounds. Soft. Nontender. No hepatospenomegaly. No masses Ankle Exam: Negative ankle edema Lower extremities: Negative lower extremity edema Neuro/Mental Status: A&O x4. Coherent Thoughts/Psych: Normal thought pattern. Appropriate mood and affect. Good judgement and insight Appearance: In no acute distress Skin Exam: Normal inspection. Normal color. Warm. Dry laboratory and microbiology Laboratory Tests 11/22/24 03:28 Test 11/22/24 03:28 Range/Units Serum Glucose 86 74-106 mg/dL Microbiology Date/Time Source Procedure Growth Status 11/22/24 19:01 Stool Stool Culture - Preliminary Resulted 11/22/24 19:01 Stool Shiga Toxin I & II - Final Resulted Problem List/Assessment/Plan Problem List/Assessment/Plan Rhabdomyolysis Wedge compression fracture of T11-T12 vertebra, initial encounter for closed fracture Suspected cirrhosis: MELD score: 6 Frequent falls Elevated troponin Chronic Diarrhea Generalized weakness History of chronic alcohol use Plan/recommendation Dr Strong -hepatitis panel negative. Patient has chronic history of alcohol, possibly hepatomegaly on CT scan and ultrasound findings are suggestive of suspected mild cirrhosis. -low MELD score with acceptable INR, continue to monitor liver function. -continue follow with IV hydration for rhabdomyolysis. -avoid hepatotoxic medication and medication that predispose or precipitate rhabdomyolysis. -we will continue following with patient. Plan discussed with: Patient, Other (RN) SUKUMAR CARDENAS RESIDENT Nov 23, 2024 17:15
--- NOTE | 2024-11-23 19:49 | DVHPN2 ---
Progress Note - Dictate Date Seen: Nov 23, 2024 Medical Necessity Reason Pt with a Central, PICC or Fol: No Subjective Patient was seen and evaluated in follow up. Patient is complaining of back pain. Patient continued to be treated for influenza. CPK level is trending down. LFTs remain elevated. Telemetry reviewed. vital signs Vital Sign Date Time Temp Pulse Resp B/P (MAP) Pulse Ox O2 Delivery O2 Flow Rate FiO2 11/23/24 17:00 98.0 56 17 149/69 (95) 93 98.0 11/23/24 08:05 Nasal Cannula* 5 40 Total Intake and Output 11/22/24 11/22/24 11/23/24 15:00 23:00 07:00 Intake Total 840 ml 720 ml 800 ml Output Total 650 ml Balance 840 ml 70 ml 800 ml medications Current Medications Medications Dose Ordered Sig/Howard Route Start Time Stop Time Status Last Admin Dose Admin Hydralazine HCl 10 mg Q6HP PRN IV 11/21/24 04:00 Amlodipine Besylate 5 mg DAILY PO 11/21/24 10:00 11/23/24 11:16 5 MG Aspirin 81 mg DAILY PO 11/21/24 10:00 11/23/24 11:14 81 MG Acetaminophen/ Hydrocodone Bitart 1 tab Q4HP PRN PO 11/21/24 04:00 Ondansetron HCl 4 mg Q4HP PRN IV 11/21/24 04:00 Docusate Sodium 100 mg BIDPRN PRN PO 11/21/24 04:00 Acetaminophen 650 mg Q6HP PRN PO 11/21/24 04:00 Nitroglycerin 0.4 mg Q5MINP PRN SL 11/21/24 04:00 Morphine Sulfate 2 mg Q30M PRN IV 11/21/24 04:00 Potassium Bicarbonate 50 meq DAILY PO 11/22/24 10:00 11/23/24 11:15 50 MEQ Oseltamivir Phosphate 75 mg BID PO 11/22/24 10:00 11/26/24 09:59 11/23/24 11:16 75 MG Sodium Chloride 1,000 ml @ 150 mls/hr Q6H40M IV 11/23/24 09:45 11/23/24 16:52 150 MLS/HR objective GENERAL: Awake, alert, oriented. Ill appearing. LUNGS: Coarse breath sounds. CARDIOVASCULAR: Heart sounds are good. ABDOMEN: Soft. laboratory and microbiology Laboratory Tests 11/22/24 03:28 Test 11/22/24 03:28 Range/Units Serum Glucose 86 74-106 mg/dL Problem List Positive troponins. Atypical chest pain. Recurrent falls. T11 fracture with 50% height loss. COPD exacerbation. Elevated LFTs. HTN. Assessment/Plan Continued all current supportive medical care. Echocardiogram. Morphine and [place] for pain management. Amlodipine. Aspirin. IV Hydralazine for an SPB > 150. Nitro SL. Additional plan as per the hospital course. Plan discussed with: Patient ESAU BLANCHARD MD Nov 23, 2024 19:49
[2024-11-24] VITALS (8 sets, daily range): BP systolic 138–169; BP diastolic 66–82; PULSE 63–76; RESP 14–20; TEMP 97.6–98.7; O2SAT 90–98
[2024-11-24] MEDS: hydrALAZINE HCL 20 MG/ML VL IV PRN (06:24)
[2024-11-24 07:17] LABS: Albumin 3.6 g/dL (3.2-4.8); Alkaline Phosphatase 64 U/L (46-116); Anion Gap 11 (5-15); BUN/Creatinine Ratio 21.7 (10.0-20.0); Bilirubin, Total 1.2 mg/dL (0.2-1.0); Blood Urea Nitrogen 13 mg/dL (9-23); Calcium 9.2 mg/dL (8.7-10.4); Carbon Dioxide 26 mmol/L (20-31); Chloride 103 mmol/L (98-107); Sodium 140 mmol/L (136-145); Total Protein 5.7 g/dL (5.7-8.2)
[2024-11-24 07:25] LABS: Alanine Aminotransferase 146 U/L (7-40); Aspartate Aminotransferase 208 U/L (13-40); Creatine Kinase IFCC 345 U/L (46-171); Glucose 72 mg/dL (74-106); Potassium 3.2 mmol/L (3.5-5.1)
[2024-11-24 07:30] LABS: Basophils # (auto) 0 10 ^3/uL (0-0.2); Basophils % (auto) 0.1 % (0.0-2.0); Eosinophils # (auto) 0 10 ^3/uL (0-0.8); Eosinophils % (auto) 0.1 % (0.0-7.0); Hematocrit 39.6 % (41.0-53.0); Hemoglobin 13.5 g/dL (13.5-17.5); Lymphocytes # (auto) 0.8 10 ^3/uL (0.4-5.4); Lymphocytes % (auto) 11.5 % (10.0-50.0); Mean Corpuscular Hemoglobin 30.1 pg (28.0-32.0); Mean Corpuscular Hgb Conc. 34.2 g/dL (32.0-36.0); Mean Corpuscular Volume 87.8 fL (80.0-100.0); Monocytes # (auto) 0.5 10 ^3/uL (0-1.3); Monocytes % (auto) 6.9 % (0.0-12.0); Neutrophils # (auto) 5.8 10 ^3/uL (1.6-8.6); Neutrophils % (auto) 81.4 % (37.0-80.0); Nucleated Red Blood Cells % 0.2 %; Platelet Count (auto) 122 10^3/uL (140-450); Red Blood Cells 4.51 10^6/uL (4.5-5.90); Red Cell Distribution Width 14.3 % (11.8-14.3); White Blood Cell 7.1 10^3/uL (4.4-10.8)
--- NOTE | 2024-11-24 08:44 | DVHPN2 ---
Reviewed: Care Plan, H&P, Labs, Medications, Previous Orders, Radiology Changes from previous H/P or p: No Changes Eyes: No Pain, No Vision change, No Conjunctivae inflammation, No Eyelid inflammation, No Other, No Redness ENT: No Ear pain, No Ear discharge, No Nose pain, No Nose discharge, No Nose congestion, No Mouth pain, No Mouth swelling, No Throat pain, No Throat swelling, No Other Cardiovascular: No Chest Pain, No Palpitations, No Orthopnea, No Paroxysmal Noc. Dyspnea, No Edema, No Lt Headedness, No Other Respiratory: No Cough, No Dry, No Shortness of breath, No SOB with excertion, No Wheezing, No Hemoptysis, No Pleuritic Pain, No Sputum, No Other Gastrointestinal: No Nausea, No Vomiting, No Abdominal Pain, No Diarrhea, No Constipation, No Melena, No Hematochezia, No Other Genitourinary: No Dysuria, No Frequency, No Incontinence, No Hematuria, No Retention, No Other Musculoskeletal: No other, No neck pain, No shoulder pain, No arm pain; back pain; No hand pain, No leg pain, No foot pain Skin: No Rash, No Lesions, No Jaundice, No Bruising, No Other Objective Vitals Vital Signs Date Time Temp Pulse Resp B/P (MAP) Pulse Ox O2 Delivery O2 Flow Rate FiO2 11/24/24 08:00 Nasal Cannula* 5 40 11/24/24 06:24 160/74 11/24/24 05:00 98.2 73 18 90 98.2 Intake/Output Intake and Output 11/24/24 07:00 Intake Total 2850 ml Balance 2850 ml Intake Oral 1850 ml IV Total 1000 ml # Voids 5 # Bowel Movements 2 Medications Current Medications Medications Dose Ordered Sig/Howard Route Start Time Stop Time Status Last Admin Dose Admin Hydralazine HCl 10 mg Q6HP PRN IV 11/21/24 04:00 11/24/24 06:24 10 MG Amlodipine Besylate 5 mg DAILY PO 11/21/24 10:00 11/23/24 11:16 5 MG Aspirin 81 mg DAILY PO 11/21/24 10:00 11/23/24 11:14 81 MG Acetaminophen/ Hydrocodone Bitart 1 tab Q4HP PRN PO 11/21/24 04:00 Ondansetron HCl 4 mg Q4HP PRN IV 11/21/24 04:00 Docusate Sodium 100 mg BIDPRN PRN PO 11/21/24 04:00 Acetaminophen 650 mg Q6HP PRN PO 11/21/24 04:00 Nitroglycerin 0.4 mg Q5MINP PRN SL 11/21/24 04:00 Morphine Sulfate 2 mg Q30M PRN IV 11/21/24 04:00 Potassium Bicarbonate 50 meq DAILY PO 11/22/24 10:00 11/23/24 11:15 50 MEQ Oseltamivir Phosphate 75 mg BID PO 11/22/24 10:00 11/26/24 09:59 11/23/24 21:09 75 MG Sodium Chloride 1,000 ml @ 150 mls/hr Q6H40M IV 11/23/24 09:45 11/24/24 06:48 150 MLS/HR Laboratory Results Laboratory Tests 11/24/24 05:13 Chemistry Test 11/24/24 05:13 Albumin 3.6 g/dL (3.2-4.8) Calcium Level 9.2 mg/dL (8.7-10.4) Total Protein 5.7 g/dL (5.7-8.2) LFT Test 11/24/24 05:13 Alanine Aminotransferase (ALT) 146 U/L (7-40) H Alkaline Phosphatase 64 U/L (46-116) Aspartate Amino Transferase (AST) 208 U/L (13-40) H Total Bilirubin 1.2 mg/dL (0.2-1.0) H Urinalysis Test 11/21/24 03:00 Urine Color Yellow (Yellow) Urine Clarity Clear (Clear) Urine pH 6.0 (5.0-9.0) Urine Specific [place] 1.025 (1.001-1.035) Urine Protein 1+ (Negative) H Urine Ketones Trace (Negative) Urine Blood 3+ /uL (Negative) H Urine Nitrite Negative (Negative) Urine Bilirubin Negative (Negative) Urine Urobilinogen Normal mg/dL (Negative) Urine Leukocyte Esterase Negative /uL (Negative) Urine RBC 1 /hpf (0 - 3) Urine Microscopic WBC 2 /HPF (0-3) Urine Squamous Epithelial Cells Few /hpf (<5) Urine Bacteria None seen /hpf (None Seen) Urine Hyaline Casts Few /lpf (0 - 2) Urine Mucus Few (None Seen) Urine Glucose Normal mg/dL (Normal) Microbiology Microbiology Date/Time Source Procedure Growth Status 11/22/24 19:01 Stool Stool Culture - Preliminary Resulted 11/22/24 19:01 Stool Shiga Toxin I & II - Final Resulted Labs and/or images reviewed: Labs reviewed by me, Image(s) reviewed by me Assessment/Plan Assessment/Plan Flu type A: Tamiflu Acute rhabdomyolysis with CPK 4900, trending down, continue IV fluids Acute enterocolitis: GI consult appreciated Chronic diarrhea: Stool studies negative for Shigella and Campylobacter Acute generalized weakness Recurrent falls Acute dehydration NS 150 per hr T11 fracture with 50 percent height loss: Orthopedic consult for Dr Nieto Acute hypokalemia potassium 2.9: Replace potassium Elevated troponin 146: Consult by Dr. Bar, noncardiac chest pain BPH History of AFib Acute on chronic COPD exacerbation Hypertension Chronic back pain CT head negative C-spine CT negative History of chronic alcohol abuse Mild alcoholic cirrhosis Condition guarded Time spent 65 minutes Advanced care planning time 20 minutes Patient is full code Plan discussed with: Patient My Orders Orders - ANTHONY FLORES MD Procedure Category Date Status Time Sodium Chloride 0.9% PHA 11/23/24 In Process 09:45 Comprehensive LAB 11/25/24 Verified Metabolic Panel 04:00 Comprehensive LAB 11/26/24 Verified Metabolic Panel 04:00 Complete Blood Count LAB 11/25/24 Verified 04:00 Complete Blood Count LAB 11/26/24 Verified 04:00 Creatine Kinase LAB 11/25/24 Verified 04:00 Creatine Kinase LAB 11/26/24 Verified 04:00 Cleanse Wound With ARSENIO 11/23/24 In Process Wound Clean 10:45 Date of Service: Nov 24, 2024 Billing Provider: ANTHONY FLORES MD Common Visit Codes: [id number] INP/OBS CARE(HIGH) ANTHONY FLORES MD Nov 24, 2024 08:44
--- NOTE | 2024-11-24 14:26 | DVHPN2 ---
Progress Note - Dictate Date Seen: Nov 24, 2024 Medical Necessity Reason Pt with a Central, PICC or Fol: No Subjective Patient was seen and evaluated in follow up. Patient is complaining of back pain. Patient is pending Ortho evaluation. K 3.2, potassium replaced. AST 208, ALT 146. Telemetry reviewed. vital signs Vital Sign Date Time Temp Pulse Resp B/P (MAP) Pulse Ox O2 Delivery O2 Flow Rate FiO2 11/24/24 13:00 97.8 70 14 139/66 (90) 98 97.8 11/24/24 08:00 Nasal Cannula* 5 40 Total Intake and Output 11/23/24 11/23/24 11/24/24 15:00 23:00 07:00 Intake Total 2250 ml 600 ml Balance 2250 ml 600 ml medications Current Medications Medications Dose Ordered Sig/Howard Route Start Time Stop Time Status Last Admin Dose Admin Hydralazine HCl 10 mg Q6HP PRN IV 11/21/24 04:00 11/24/24 06:24 10 MG Amlodipine Besylate 5 mg DAILY PO 11/21/24 10:00 11/24/24 09:41 5 MG Aspirin 81 mg DAILY PO 11/21/24 10:00 11/24/24 09:39 81 MG Acetaminophen/ Hydrocodone Bitart 1 tab Q4HP PRN PO 11/21/24 04:00 Ondansetron HCl 4 mg Q4HP PRN IV 11/21/24 04:00 Docusate Sodium 100 mg BIDPRN PRN PO 11/21/24 04:00 Acetaminophen 650 mg Q6HP PRN PO 11/21/24 04:00 Nitroglycerin 0.4 mg Q5MINP PRN SL 11/21/24 04:00 Morphine Sulfate 2 mg Q30M PRN IV 11/21/24 04:00 Potassium Bicarbonate 50 meq DAILY PO 11/22/24 10:00 11/24/24 09:38 50 MEQ Oseltamivir Phosphate 75 mg BID PO 11/22/24 10:00 11/26/24 09:59 11/24/24 09:41 75 MG Sodium Chloride 1,000 ml @ 150 mls/hr Q6H40M IV 11/23/24 09:45 11/24/24 12:25 150 MLS/HR objective GENERAL: Awake, alert, oriented. Ill appearing. LUNGS: Coarse breath sounds. CARDIOVASCULAR: Heart sounds are good. ABDOMEN: Soft. laboratory and microbiology Laboratory Tests 11/24/24 05:13 Test 11/24/24 05:13 Range/Units Serum Glucose 72 L 74-106 mg/dL Problem List Positive troponins. Atypical chest pain. Recurrent falls. T11 fracture with 50% height loss. COPD exacerbation. Elevated LFTs. HTN. Assessment/Plan Continued all current supportive medical care. Echocardiogram. Morphine and [place] for pain management. Amlodipine. Aspirin. IV Hydralazine for an SPB > 150. Nitro SL. Additional plan as per the hospital course. Dietary Evaluation Review Comments: encourage and monitor PO intake to meet 75% pf his needs. Provide Ensure Enlive (20g protein 350kcal/240 ml) PO bid as supplements Expected Outcomes/Goals: gradual wt loss, improved lab values, healed fx wounds and skin tear. Plan discussed with: Patient ESAU BLANCHARD MD Nov 24, 2024 14:26
--- NOTE | 2024-11-24 15:39 | DVHPNRES ---
Progress Note Date Seen: Nov 24, 2024 Resident Creating Document: SUKUMAR CARDENAS RESIDENT Medical Necessity Reason Pt with a Central, PICC or Fol: No Subjective Review of Systems No new complaints. Patient does not have any acute complaints. No nausea, vomiting Patient continued to be treated for influenza. CPK level is trending down. Mild elevation of liver enzymes. No chest pain or new any other symptoms. Objective vital signs Vital Sign Date Time Temp Pulse Resp B/P (MAP) Pulse Ox O2 Delivery O2 Flow Rate FiO2 11/24/24 13:00 97.8 70 14 139/66 (90) 98 97.8 11/24/24 08:00 Nasal Cannula* 5 40 Total Intake and Output 11/23/24 11/23/24 11/24/24 14:59 22:59 06:59 Intake Total 2250 ml 600 ml Balance 2250 ml 600 ml medications Current Medications Medications Dose Ordered Sig/Howard Route Start Time Stop Time Status Last Admin Dose Admin Hydralazine HCl 10 mg Q6HP PRN IV 11/21/24 04:00 11/24/24 06:24 10 MG Amlodipine Besylate 5 mg DAILY PO 11/21/24 10:00 11/24/24 09:41 5 MG Aspirin 81 mg DAILY PO 11/21/24 10:00 11/24/24 09:39 81 MG Acetaminophen/ Hydrocodone Bitart 1 tab Q4HP PRN PO 11/21/24 04:00 Ondansetron HCl 4 mg Q4HP PRN IV 11/21/24 04:00 Docusate Sodium 100 mg BIDPRN PRN PO 11/21/24 04:00 Acetaminophen 650 mg Q6HP PRN PO 11/21/24 04:00 Nitroglycerin 0.4 mg Q5MINP PRN SL 11/21/24 04:00 Morphine Sulfate 2 mg Q30M PRN IV 11/21/24 04:00 Potassium Bicarbonate 50 meq DAILY PO 11/22/24 10:00 11/24/24 09:38 50 MEQ Oseltamivir Phosphate 75 mg BID PO 11/22/24 10:00 11/26/24 09:59 11/24/24 09:41 75 MG Sodium Chloride 1,000 ml @ 150 mls/hr Q6H40M IV 11/23/24 09:45 11/24/24 12:25 150 MLS/HR Examination General Appearance: Cooperative. Well developed. Well nourished. NAD Head Exam: Normal inspection Neck Exam: Normal inspection. Non-tender. Normal alignment Pulmonary/Respiratory: Chest non-tender. Clear bilateral breath sounds Cardiovascular/Chest: Regular rate and rhythm. No murmurs. No JVD. Peripheral Pulses: 2+ Radial (R). 2+ Radial (L). 2+ Pedal (R). 2+ Pedal (L) Abdominal Exam: Normal bowel sounds. Soft. Nontender. No hepatospenomegaly. No masses Ankle Exam: Negative ankle edema Lower extremities: Negative lower extremity edema Neuro/Mental Status: A&O x4. Coherent Thoughts/Psych: Normal thought pattern. Appropriate mood and affect. Good judgement and insight Appearance: In no acute distress Skin Exam: Normal inspection. Normal color. Warm. Dry laboratory and microbiology Laboratory Tests 11/24/24 05:13 Test 11/24/24 05:13 Range/Units Serum Glucose 72 L 74-106 mg/dL Microbiology Date/Time Source Procedure Growth Status 11/22/24 19:01 Stool Stool Culture - Preliminary Resulted 11/22/24 19:01 Stool Shiga Toxin I & II - Final Resulted Problem List/Assessment/Plan Problem List/Assessment/Plan Rhabdomyolysis Wedge compression fracture of T11-T12 vertebra, initial encounter for closed fracture Suspected cirrhosis: MELD score: 6 Frequent falls Elevated troponin Chronic Diarrhea Generalized weakness History of chronic alcohol use Plan/recommendation Dr Strong -for chronic diarrhea evaluated with quantitative fecal fat, stool WBC, outpatient follow-up in GI clinic for further evaluation. Liver function is trending down. Continue monitoring. -hepatitis panel negative. Patient has chronic history of alcohol, possibly hepatomegaly on CT scan and ultrasound findings are suggestive of suspected mild cirrhosis. -low MELD score with acceptable INR, continue to monitor liver function. -continue follow with IV hydration for rhabdomyolysis. -avoid hepatotoxic medication and medication that predispose or precipitate rhabdomyolysis. -we will continue following with patient. Plan discussed with: Patient, Other My Orders My Orders Orders - SUKUMAR CARDENAS RESIDENT Procedure Category Date Status Time Stool Wbc LAB 11/24/24 Verified 15:35 Fecal Fat Qualitative LAB 11/24/24 Verified 15:35 Dietary Evaluation Review Comments: encourage and monitor PO intake to meet 75% pf his needs. Provide Ensure Enlive (20g protein 350kcal/240 ml) PO bid as supplements Expected Outcomes/Goals: gradual wt loss, improved lab values, healed fx wounds and skin tear. SUKUMAR CARDENAS RESIDENT Nov 24, 2024 15:39
[2024-11-24] MEDS: HYDROcodone-ACET 5/325MG TAB PO PRN (18:15)
[2024-11-25] VITALS (7 sets, daily range): BP systolic 122–171; BP diastolic 61–79; PULSE 65–79; RESP 18–20; TEMP 36.7; O2SAT 90–95
[2024-11-25 06:11] LABS: Basophils # (auto) 0 10 ^3/uL (0-0.2); Basophils % (auto) 0.1 % (0.0-2.0); Eosinophils # (auto) 0 10 ^3/uL (0-0.8); Eosinophils % (auto) 0.3 % (0.0-7.0); Hematocrit 38.1 % (41.0-53.0); Hemoglobin 13.2 g/dL (13.5-17.5); Lymphocytes # (auto) 0.8 10 ^3/uL (0.4-5.4); Lymphocytes % (auto) 10.7 % (10.0-50.0); Mean Corpuscular Hemoglobin 30.5 pg (28.0-32.0); Mean Corpuscular Hgb Conc. 34.7 g/dL (32.0-36.0); Mean Corpuscular Volume 87.8 fL (80.0-100.0); Monocytes # (auto) 0.5 10 ^3/uL (0-1.3); Monocytes % (auto) 6.9 % (0.0-12.0); Neutrophils # (auto) 6.1 10 ^3/uL (1.6-8.6); Nucleated Red Blood Cells % 0.1 %; Platelet Count (auto) 147 10^3/uL (140-450); Red Blood Cells 4.34 10^6/uL (4.5-5.90); Red Cell Distribution Width 14.2 % (11.8-14.3); White Blood Cell 7.4 10^3/uL (4.4-10.8)
[2024-11-25 06:30] LABS: Albumin 3.4 g/dL (3.2-4.8); Alkaline Phosphatase 64 U/L (46-116); Anion Gap 12 (5-15); BUN/Creatinine Ratio 17.5 (10.0-20.0); Blood Urea Nitrogen 10 mg/dL (9-23); Calcium 9.1 mg/dL (8.7-10.4); Carbon Dioxide 25 mmol/L (20-31); Chloride 104 mmol/L (98-107); Glucose 77 mg/dL (74-106); Sodium 141 mmol/L (136-145); Total Protein 5.8 g/dL (5.7-8.2)
[2024-11-25 06:48] LABS: Alanine Aminotransferase 123 U/L (7-40); Aspartate Aminotransferase 134 U/L (13-40); Bilirubin, Total 1.4 mg/dL (0.2-1.0); Creatine Kinase IFCC 184 U/L (46-171); Potassium 3.3 mmol/L (3.5-5.1)
--- NOTE | 2024-11-25 08:12 | DVHPN2 ---
Reviewed: Care Plan, H&P, Labs, Medications, Previous Orders, Radiology Changes from previous H/P or p: No Changes Eyes: No Pain, No Vision change, No Conjunctivae inflammation, No Eyelid inflammation, No Other, No Redness ENT: No Ear pain, No Ear discharge, No Nose pain, No Nose discharge, No Nose congestion, No Mouth pain, No Mouth swelling, No Throat pain, No Throat swelling, No Other Cardiovascular: No Chest Pain, No Palpitations, No Orthopnea, No Paroxysmal Noc. Dyspnea, No Edema, No Lt Headedness, No Other Respiratory: No Cough, No Dry, No Shortness of breath, No SOB with excertion, No Wheezing, No Hemoptysis, No Pleuritic Pain, No Sputum, No Other Gastrointestinal: No Nausea, No Vomiting, No Abdominal Pain, No Diarrhea, No Constipation, No Melena, No Hematochezia, No Other Genitourinary: No Dysuria, No Frequency, No Incontinence, No Hematuria, No Retention, No Other Musculoskeletal: No other, No neck pain, No shoulder pain, No arm pain; back pain; No hand pain, No leg pain, No foot pain Skin: No Rash, No Lesions, No Jaundice, No Bruising, No Other Objective Vitals Vital Signs Date Time Temp Pulse Resp B/P (MAP) Pulse Ox O2 Delivery O2 Flow Rate FiO2 11/25/24 05:00 99.0 65 18 122/66 (84) 90 99.0 11/24/24 20:00 Nasal Cannula* 4 36 Intake/Output Intake and Output 11/25/24 07:00 Intake Total 2500 ml Output Total 900 ml Balance 1600 ml Intake Oral 1150 ml IV Total 1350 ml Output Urine Total 900 ml # Voids 4 # Bowel Movements 2 Medications Current Medications Medications Dose Ordered Sig/Howard Route Start Time Stop Time Status Last Admin Dose Admin Hydralazine HCl 10 mg Q6HP PRN IV 11/21/24 04:00 11/25/24 00:39 10 MG Amlodipine Besylate 5 mg DAILY PO 11/21/24 10:00 11/24/24 09:41 5 MG Aspirin 81 mg DAILY PO 11/21/24 10:00 11/24/24 09:39 81 MG Acetaminophen/ Hydrocodone Bitart 1 tab Q4HP PRN PO 11/21/24 04:00 11/24/24 18:15 1 TAB Ondansetron HCl 4 mg Q4HP PRN IV 11/21/24 04:00 Docusate Sodium 100 mg BIDPRN PRN PO 11/21/24 04:00 Acetaminophen 650 mg Q6HP PRN PO 11/21/24 04:00 Nitroglycerin 0.4 mg Q5MINP PRN SL 11/21/24 04:00 Morphine Sulfate 2 mg Q30M PRN IV 11/21/24 04:00 Potassium Bicarbonate 50 meq DAILY PO 11/22/24 10:00 11/24/24 09:38 50 MEQ Oseltamivir Phosphate 75 mg BID PO 11/22/24 10:00 11/26/24 09:59 11/24/24 21:35 75 MG Sodium Chloride 1,000 ml @ 150 mls/hr Q6H40M IV 11/23/24 09:45 11/25/24 06:39 150 MLS/HR Laboratory Results Laboratory Tests 11/25/24 05:09 Chemistry Test 11/25/24 05:09 Albumin 3.4 g/dL (3.2-4.8) Calcium Level 9.1 mg/dL (8.7-10.4) Total Protein 5.8 g/dL (5.7-8.2) LFT Test 11/25/24 05:09 Alanine Aminotransferase (ALT) 123 U/L (7-40) H Alkaline Phosphatase 64 U/L (46-116) Aspartate Amino Transferase (AST) 134 U/L (13-40) H Total Bilirubin 1.4 mg/dL (0.2-1.0) H Urinalysis Test 11/21/24 03:00 Urine Color Yellow (Yellow) Urine Clarity Clear (Clear) Urine pH 6.0 (5.0-9.0) Urine Specific [place] 1.025 (1.001-1.035) Urine Protein 1+ (Negative) H Urine Ketones Trace (Negative) Urine Blood 3+ /uL (Negative) H Urine Nitrite Negative (Negative) Urine Bilirubin Negative (Negative) Urine Urobilinogen Normal mg/dL (Negative) Urine Leukocyte Esterase Negative /uL (Negative) Urine RBC 1 /hpf (0 - 3) Urine Microscopic WBC 2 /HPF (0-3) Urine Squamous Epithelial Cells Few /hpf (<5) Urine Bacteria None seen /hpf (None Seen) Urine Hyaline Casts Few /lpf (0 - 2) Urine Mucus Few (None Seen) Urine Glucose Normal mg/dL (Normal) Microbiology Microbiology Date/Time Source Procedure Growth Status 11/22/24 19:01 Stool Stool Culture - Preliminary Resulted 11/22/24 19:01 Stool Shiga Toxin I & II - Final Resulted Labs and/or images reviewed: Labs reviewed by me, Image(s) reviewed by me Assessment/Plan Assessment/Plan Flu type A: Tamiflu Acute rhabdomyolysis with CPK 4900, trending down, continue IV fluids Acute enterocolitis: GI consult appreciated Chronic diarrhea: Stool studies negative for Shigella and Campylobacter Acute generalized weakness Recurrent falls Acute dehydration NS 150 per hr T11 fracture with 50 percent height loss: Orthopedic consult for Dr Nieto Acute hypokalemia potassium 2.9: Replace potassium Elevated troponin 146: Consult by Dr. Bar, noncardiac chest pain BPH Elevated Liver function tests improving: Consult by GI Dr Strong appreciated History of AFib Acute on chronic COPD exacerbation Hypertension Chronic back pain CT head negative C-spine CT negative History of chronic alcohol abuse: Thiamine folic acid Mild alcoholic cirrhosis Condition guarded Time spent 65 minutes Advanced care planning time 20 minutes Patient is full code Daughter and JOANN Law [phone] at bedside agreeable for residential placement for rehab for recurrent falls as the patient's is very sick and can not take care of patient. Plan discussed with: Patient My Orders Orders - ANTHONY FLORES MD Procedure Category Date Status Time Pt Request For Service PT 11/24/24 Logged 08:45 Communication Order ORDERS 11/25/24 Transmitted 09:34 Date of Service: Nov 25, 2024 Billing Provider: ANTHONY FLORES MD Common Visit Codes: [id number] INP/OBS CARE(HIGH) ANTHONY FLORES MD Nov 25, 2024 08:12
--- NOTE | 2024-11-25 08:40 | DVHDS2 ---
Discharge Summary Date of Admission Nov 21, 2024 at 03:56 Date of Discharge: Nov 25, 2024 Admitting Diagnosis Generalized weakness recurrent falls Wounds: T11 fracture Labs/Diagnostic Data: Laboratory Results Test 11/25/24 05:09 11/24/24 20:30 11/22/24 19:01 11/22/24 03:28 White Blood Count 7.4 10^3/uL (4.4-10.8) Red Blood Count 4.34 10^6/uL (4.5-5.90) Hemoglobin 13.2 g/dL (13.5-17.5) Hematocrit 38.1 % (41.0-53.0) Mean Corpuscular Volume 87.8 fL (80.0-100.0) Mean Corpuscular Hemoglobin 30.5 pg (28.0-32.0) Mean Corpuscular Hemoglobin Concent 34.7 g/dL (32.0-36.0) Red Cell Distribution Width 14.2 % (11.8-14.3) Platelet Count 147 10^3/uL (140-450) Mean Platelet Volume 9.3 fL (6.9-10.8) Neutrophils (%) (Auto) 82.0 % (37.0-80.0) Lymphocytes (%) (Auto) 10.7 % (10.0-50.0) Monocytes (%) (Auto) 6.9 % (0.0-12.0) Eosinophils (%) (Auto) 0.3 % (0.0-7.0) Basophils (%) (Auto) 0.1 % (0.0-2.0) Neutrophils # (Auto) 6.1 10 ^3/uL (1.6-8.6) Lymphocytes # (Auto) 0.8 10 ^3/uL (0.4-5.4) Monocytes # (Auto) 0.5 10 ^3/uL (0-1.3) Eosinophils # (Auto) 0 10 ^3/uL (0-0.8) Basophils # (Auto) 0 10 ^3/uL (0-0.2) Nucleated Red Blood Cells 0.1 % Sodium Level 141 mmol/L (136-145) Potassium Level 3.3 mmol/L (3.5-5.1) Chloride Level 104 mmol/L (98-107) Carbon Dioxide Level 25 mmol/L (20-31) Anion Gap 12 (5-15) Blood Urea Nitrogen 10 mg/dL (9-23) Creatinine 0.57 mg/dL (0.700-1.30) Glomerular Filtration Rate Calc 103 mL/min (>90) BUN/Creatinine Ratio 17.5 (10.0-20.0) Serum Glucose 77 mg/dL (74-106) Calcium Level 9.1 mg/dL (8.7-10.4) Total Bilirubin 1.4 mg/dL (0.2-1.0) Aspartate Amino Transferase (AST) 134 U/L (13-40) Alanine Aminotransferase (ALT) 123 U/L (7-40) Alkaline Phosphatase 64 U/L (46-116) Creatine Kinase 184 U/L (46-171) Total Protein 5.8 g/dL (5.7-8.2) Albumin 3.4 g/dL (3.2-4.8) Stool for White Cells None seen Stool Occult Blood Negative (Negative) Stool Occult Blood Sample #3 (Negative) Prothrombin Time 10.7 sec (9.3-11.8) Prothrombin Time INR 1.01 (0.9-1.15) Activated Partial Thromboplast Time 34.7 SEC (24.5-34.5) Test 11/22/24 01:28 11/21/24 16:40 11/21/24 06:54 11/21/24 03:00 Influenza Type A Antigen Positive (Negative) Influenza Type B Antigen Negative (Negative) SARS-CoV-2 Antigen (Rapid) Negative (NEGATIVE) Phosphorus Level 1.8 mg/dL (2.4-5.1) Vitamin B12 Level 845 pg/mL (211-911) Vitamin D 25-Hydroxy 65.6 ng/mL (30.0-100) Thyroid Stimulating Hormone (TSH) 1.10 uIU/mL (0.55-4.78) Hepatitis B Surface Antigen Negative (Negative) Hepatitis B Surface Antibody Negative (Negative) Hepatitis C Antibody Negative (Negative) Plasma/Serum Blood Alcohol < 3.0 mg/dL (<10) Urine Color Yellow (Yellow) Urine Clarity Clear (Clear) Urine pH 6.0 (5.0-9.0) Urine Specific Anthony 1.025 (1.001-1.035) Urine Protein 1+ (Negative) Urine Ketones Trace (Negative) Urine Blood 3+ /uL (Negative) Urine Nitrite Negative (Negative) Urine Bilirubin Negative (Negative) Urine Urobilinogen Normal mg/dL (Negative) Urine Leukocyte Esterase Negative /uL (Negative) Urine RBC 1 /hpf (0 - 3) Urine Microscopic WBC 2 /HPF (0-3) Urine Squamous Epithelial Cells Few /hpf (<5) Urine Bacteria None seen /hpf (None Seen) Urine Hyaline Casts Few /lpf (0 - 2) Urine Mucus Few (None Seen) Urine Glucose Normal mg/dL (Normal) Urine Opiates Screen Neg (NEGATIVE) Urine Fentanyl Screen Neg (NEGATIVE) Urine Barbiturates Screen Neg (NEGATIVE) Urine Phencyclidine Screen Neg (NEGATIVE) Urine Amphetamines Screen Neg (NEGATIVE) Urine Benzodiazepines Screen Neg (NEGATIVE) Urine Cocaine Screen Neg (NEGATIVE) Urine Cannabinoids Screen Neg (NEGATIVE) Test 11/20/24 23:18 11/20/24 21:51 11/20/24 20:15 Troponin I High Sensitivity 147 ng/L (</=54) B-Type Natriuretic Peptide 71.35 pg/mL (0-100) Lactic Acid Level 1.7 mmol/L (0.4-2.0) Magnesium Level 1.8 mg/dL (1.6-2.6) Other Laboratory Tests 11/25/24 05:09 Brief Hx & Hospital Course: 74-year-old male with a previous history of alcohol abuse BPH history of AFib COPD hypertension chronic back pain with a recurrent history of falls at home brought into the ER for generalized weakness after mechanical fall. Found to have flu type B treated with the Tamiflu. Patient had T11 fracture with 50 percent height loss as seen by CT chest abdomen and pelvis without contrast. Spine surgery consult for Dr. Nieto. pending. Treated with the pain medications and physical therapy troponin elevated 146 found to have type [address]-elevation PR ejection fraction 65 percent patient had acute rhabdomyolysis CPK 4900, trending down with IV fluids. Also acute elevation of liver enzymes secondary to dehydration and possible previous alcohol abuse . Seen by GI Dr. Sherie Strong liver function tests improving. Home medications continued for AFib and COPD acute hypokalemia potassium 2.[address] head was negative C-spine CT was negative. Patient had physical therapy evaluation who recommended intermediate facility placement for rehab. Discussed with the patient and his daughter Ani and they are agreeable with the plan. Consults/Reason for consult Cardiology Dr. Bar GI Dr. Sherie Strong Operations or Procedures CT chest abdomen pelvis without contrast Echocardiogram Condition at Discharge: Fair Final Diagnosis/Problems List Flu type A: Tamiflu Acute rhabdomyolysis with CPK 4900, trending down, continue IV fluids Acute enterocolitis: GI consult appreciated Chronic diarrhea: Stool studies negative for Shigella and Campylobacter Acute generalized weakness Recurrent falls Acute dehydration NS 150 per hr T11 fracture with 50 percent height loss: Orthopedic consult for Dr Nieto Acute hypokalemia potassium 2.9: Replace potassium Elevated troponin 146: Consult by Dr. Bar, noncardiac chest pain BPH Elevated Liver function tests improving: Consult by PETE Strong appreciated History of AFib Acute on chronic COPD exacerbation Hypertension Chronic back pain CT head negative C-spine CT negative History of chronic alcohol abuse: Thiamine folic acid Mild alcoholic cirrhosis Discharge Disposition: Shelter Facility Discharge Instruct/Medications Diet: Cardiac 2g Na,low cholest Activity: Light activity Follow Up/Referral: Follow up with the residential Medications: see list 39 (Time taken for discharge summary 39 minutes) Discharge Statement: "Patient was advised to return to the ER or call 911 if any headaches, dizziness, shortness of breath, chest pain, abdominal pain, bleeding, fevers, or worsening of medical condition. Patient was counseled about treatment plan, medications, possible side effects, patientverbalized understanding. All questions were answered to the best of my ability. This discharge took greater then 30 minutes in planning, reviewing documentation, counseling the patient, and discussing with other team members." ASSESSMENT ASSESSMENT Hospital Course Improved Assessment Flu type A: Tamiflu Acute rhabdomyolysis with CPK 4900, trending down, continue IV fluids Acute enterocolitis: GI consult appreciated Chronic diarrhea: Stool studies negative for Shigella and Campylobacter Acute generalized weakness Recurrent falls Acute dehydration NS 150 per hr T11 fracture with 50 percent height loss: Orthopedic consult for Dr Nieto Acute hypokalemia potassium 2.9: Replace potassium Elevated troponin 146: Consult by Dr. Bar, noncardiac chest pain BPH Elevated Liver function tests improving: Consult by GI Dr Strong appreciated History of AFib Acute on chronic COPD exacerbation Hypertension Chronic back pain CT head negative C-spine CT negative History of chronic alcohol abuse: Thiamine folic acid Mild alcoholic cirrhosis Date of Service: Nov 25, 2024 Billing Provider: ANTHONY FLORES MD Common Visit Codes: 75066-TIW/OBS DISCH DAY >30min, 83373-[id number] CARE-EACH +30MIN ANTHONY FLORES MD Nov 25, 2024 08:40
[2024-11-25] MEDS: THIAMINE HCL 100 MG TAB PO SCH (09:53)
[2024-11-25] MEDS: FOLIC ACID 1 MG TAB PO SCH (09:54)
[2024-11-25] MEDS: MULTIPLE VITAMIN TAB PO SCH (09:55)
--- NOTE | 2024-11-25 10:36 | DVHPNRES ---
Progress Note Date Seen: Nov 25, 2024 Resident Creating Document: SUKUMAR CARDENAS RESIDENT Medical Necessity Reason Pt with a Central, PICC or Fol: No Subjective Review of Systems No new complaints. Patient continued to have mild loose watery stools. Chronic. No any other new complaints. Patient has been discharged as per hospitalist team. Objective vital signs Vital Sign Date Time Temp Pulse Resp B/P (MAP) Pulse Ox O2 Delivery O2 Flow Rate FiO2 11/25/24 09:53 160/79 11/25/24 09:00 98.0 69 18 94 98.0 11/24/24 20:00 Nasal Cannula* 4 36 Total Intake and Output 11/24/24 11/24/24 11/25/24 15:00 23:00 07:00 Intake Total 750 ml 1350 ml 400 ml Output Total 900 ml Balance 750 ml 1350 ml -500 ml medications Current Medications Medications Dose Ordered Sig/Howard Route Start Time Stop Time Status Last Admin Dose Admin Hydralazine HCl 10 mg Q6HP PRN IV 11/21/24 04:00 11/25/24 00:39 10 MG Amlodipine Besylate 5 mg DAILY PO 11/21/24 10:00 11/25/24 09:53 5 MG Aspirin 81 mg DAILY PO 11/21/24 10:00 11/25/24 09:52 81 MG Acetaminophen/ Hydrocodone Bitart 1 tab Q4HP PRN PO 11/21/24 04:00 11/24/24 18:15 1 TAB Ondansetron HCl 4 mg Q4HP PRN IV 11/21/24 04:00 Docusate Sodium 100 mg BIDPRN PRN PO 11/21/24 04:00 Acetaminophen 650 mg Q6HP PRN PO 11/21/24 04:00 Nitroglycerin 0.4 mg Q5MINP PRN SL 11/21/24 04:00 Morphine Sulfate 2 mg Q30M PRN IV 11/21/24 04:00 Potassium Bicarbonate 50 meq DAILY PO 11/22/24 10:00 11/25/24 09:54 50 MEQ Oseltamivir Phosphate 75 mg BID PO 11/22/24 10:00 11/26/24 09:59 11/25/24 09:54 75 MG Sodium Chloride 1,000 ml @ 150 mls/hr Q6H40M IV 11/23/24 09:45 11/25/24 06:39 150 MLS/HR Thiamine HCl 100 mg DAILY PO 11/25/24 10:00 11/25/24 09:53 100 MG Folic Acid 1 mg DAILY PO 11/25/24 10:00 11/25/24 09:54 1 MG Multivitamins 1 tab DAILY PO 11/25/24 10:00 11/25/24 09:55 1 TAB Examination General Appearance: Cooperative. Well developed. Well nourished. NAD Head Exam: Normal inspection Neck Exam: Normal inspection. Non-tender. Normal alignment Pulmonary/Respiratory: Chest non-tender. Clear bilateral breath sounds Cardiovascular/Chest: Regular rate and rhythm. No murmurs. No JVD. Peripheral Pulses: 2+ Radial (R). 2+ Radial (L). 2+ Pedal (R). 2+ Pedal (L) Abdominal Exam: Normal bowel sounds. Soft. Nontender. No hepatospenomegaly. No masses Ankle Exam: Negative ankle edema Lower extremities: Negative lower extremity edema Neuro/Mental Status: A&O x4. Coherent Thoughts/Psych: Normal thought pattern. Appropriate mood and affect. Good judgement and insight Appearance: In no acute distress Skin Exam: Normal inspection. Normal color. Warm. Dry laboratory and microbiology Laboratory Tests 11/25/24 05:09 Test 11/25/24 05:09 Range/Units Serum Glucose 77 74-106 mg/dL Microbiology Date/Time Source Procedure Growth Status 11/22/24 19:01 Stool Stool Culture - Final Complete 11/22/24 19:01 Stool Shiga Toxin I & II - Final Complete Problem List/Assessment/Plan Problem List/Assessment/Plan Rhabdomyolysis Wedge compression fracture of T11-T12 vertebra, initial encounter for closed fracture Suspected cirrhosis: MELD score: 6 Frequent falls Elevated troponin Chronic Diarrhea Generalized weakness History of chronic alcohol use Plan/recommendation Dr Strong Follow up in GI clinic for further evaluation of chronic diarrhea. Possible colonoscopy in outpatient setting. -for chronic diarrhea evaluated with quantitative fecal fat, stool WBC, outpatient follow-up in GI clinic for further evaluation. Liver function is trending down. Continue monitoring. -hepatitis panel negative. Patient has chronic history of alcohol, possibly hepatomegaly on CT scan and ultrasound findings are suggestive of suspected mild cirrhosis. -low MELD score with acceptable INR, continue to monitor liver function. -continue follow with IV hydration for rhabdomyolysis. -avoid hepatotoxic medication and medication that predispose or precipitate rhabdomyolysis. Plan discussed with: Patient, Other (RN) My Orders My Orders Orders - SUKUMAR CARDENAS RESIDENT Procedure Category Date Status Time Fecal Fat Qualitative LAB 11/24/24 In Process 15:35 Dietary Evaluation Review Comments: encourage and monitor PO intake to meet 75% pf his needs. Provide Ensure Enlive (20g protein 350kcal/240 ml) PO bid as supplements Expected Outcomes/Goals: gradual wt loss, improved lab values, healed fx wounds and skin tear. SUKUMAR CARDENAS RESIDENT Nov 25, 2024 10:36
--- NOTE | 2024-11-25 22:23 | DVHPN2 ---
Progress Note - Dictate Date Seen: Nov 25, 2024 Medical Necessity Reason Pt with a Central, PICC or Fol: No Subjective Patient was seen and evaluated in follow up. Patient is complaining of back pain. K 3.3, AST 134, ALT 123. WBC stools returned negative. Telemetry reviewed. vital signs Vital Sign Date Time Temp Pulse Resp B/P (MAP) Pulse Ox O2 Delivery O2 Flow Rate FiO2 11/25/24 09:53 160/79 11/25/24 09:00 98.0 69 18 94 98.0 11/24/24 20:00 Nasal Cannula* 4 36 Total Intake and Output 11/24/24 11/24/24 11/25/24 15:00 23:00 07:00 Intake Total 750 ml 1350 ml 400 ml Output Total 900 ml Balance 750 ml 1350 ml -500 ml medications Current Medications Medications Dose Ordered Sig/Howard Route Start Time Stop Time Status Last Admin Dose Admin Hydralazine HCl 10 mg Q6HP PRN IV 11/21/24 04:00 11/25/24 00:39 10 MG Amlodipine Besylate 5 mg DAILY PO 11/21/24 10:00 11/25/24 09:53 5 MG Aspirin 81 mg DAILY PO 11/21/24 10:00 11/25/24 09:52 81 MG Acetaminophen/ Hydrocodone Bitart 1 tab Q4HP PRN PO 11/21/24 04:00 11/24/24 18:15 1 TAB Ondansetron HCl 4 mg Q4HP PRN IV 11/21/24 04:00 Docusate Sodium 100 mg BIDPRN PRN PO 11/21/24 04:00 Acetaminophen 650 mg Q6HP PRN PO 11/21/24 04:00 Nitroglycerin 0.4 mg Q5MINP PRN SL 11/21/24 04:00 Morphine Sulfate 2 mg Q30M PRN IV 11/21/24 04:00 Potassium Bicarbonate 50 meq DAILY PO 11/22/24 10:00 11/25/24 09:54 50 MEQ Oseltamivir Phosphate 75 mg BID PO 11/22/24 10:00 11/26/24 09:59 11/25/24 09:54 75 MG Sodium Chloride 1,000 ml @ 150 mls/hr Q6H40M IV 11/23/24 09:45 11/25/24 06:39 150 MLS/HR Thiamine HCl 100 mg DAILY PO 11/25/24 10:00 11/25/24 09:53 100 MG Folic Acid 1 mg DAILY PO 11/25/24 10:00 11/25/24 09:54 1 MG Multivitamins 1 tab DAILY PO 11/25/24 10:00 11/25/24 09:55 1 TAB objective GENERAL: Awake, alert, oriented. Ill appearing. LUNGS: Coarse breath sounds. CARDIOVASCULAR: Heart sounds are good. ABDOMEN: Soft. laboratory and microbiology Laboratory Tests 11/25/24 05:09 Test 11/25/24 05:09 Range/Units Serum Glucose 77 74-106 mg/dL Problem List Positive troponins. Atypical chest pain. Recurrent falls. T11 fracture with 50% height loss. COPD exacerbation. Elevated LFTs. HTN. Assessment/Plan Continued all current supportive medical care. Echocardiogram. Morphine and [place] for pain management. Amlodipine. Aspirin. IV Hydralazine for an SPB > 150. Nitro SL. Additional plan as per the hospital course. Dietary Evaluation Review Comments: encourage and monitor PO intake to meet 75% pf his needs. Provide Ensure Enlive (20g protein 350kcal/240 ml) PO bid as supplements Expected Outcomes/Goals: gradual wt loss, improved lab values, healed fx wounds and skin tear. Plan discussed with: Patient ESAU BLANCHARD MD Nov 25, 2024 12:03
== END 2024-11-25 15:40 | disposition home or self-care (01) | DRG 551 ==
LOC: ER 19:42 → EDBD 19:42 → TELE 11-21 03:56 → TELE-CENTR 11-22 22:17 → TELE 11-24 14:27 → CENTRAL 11-24 14:36 → OVERFLOW 11-25 12:35 → TELE-CENTR 11-25 12:39
PROVIDERS: ADMIT Family Medicine; ATTEND Family Medicine
DX: S22.080A Wedge compression fracture of T11-T12 vertebra, initial encounter for closed fracture (principal); I21.A1 Myocardial infarction type 2; J44.1 Chronic obstructive pulmonary disease with (acute) exacerbation; M62.82 Rhabdomyolysis; E87.6 Hypokalemia; G89.29 Other chronic pain; I10 Essential (primary) hypertension; I35.8 Other nonrheumatic aortic valve disorders; J10.1 Influenza due to other identified influenza virus with other respiratory manifestations; J43.9 Emphysema, unspecified; Z20.822 Contact with and (suspected) exposure to COVID-19; K52.9 Noninfective gastroenteritis and colitis, unspecified; N40.0 Benign prostatic hyperplasia without lower urinary tract symptoms; R16.2 Hepatomegaly with splenomegaly, not elsewhere classified; M54.9 Dorsalgia, unspecified; W18.39XA Other fall on same level, initial encounter; I48.91 Unspecified atrial fibrillation; K70.30 Alcoholic cirrhosis of liver without ascites; F10.10 Alcohol abuse, uncomplicated; Y90.9 Presence of alcohol in blood, level not specified; E86.0 Dehydration; K57.30 Diverticulosis of large intestine without perforation or abscess without bleeding; Z88.6 Allergy status to analgesic agent; Y93.89 Activity, other specified; Y92.89 Other specified places as the place of occurrence of the external cause; Y99.8 Other external cause status
CPT/HCPCS: 36415; 70450; 71250; 72125; 74176; 76705; 80053; 80307; 80320; 81001; 82270; 82306; 82550; 82607; 82705; 83605; 83735; 83880; 84100; 84443; 84484; 85025; 85048; 85610; 85730; 86706; 86803; 87045; 87340; 87426; 87427; 87804; 93005; 93306; 96365; 96366; 97163; G0378; J3480